=== PATIENT | female | born 1940 | race Caucasian/White ===

== ENCOUNTER 2019-01-15 05:31 | Observation (INO) | payer MEDICARE, OTHER ==
--- NOTE | 2019-01-15 06:26 | ERPHSYRPT ---
- History of Present Illness Source: patient Exam Limitations: no limitations Patient Subjective Stated Complaint: b/p monitor at home said error, pt having dizziness Triage Nursing Assessment: lungs clear, no distress noted. heart tones regular. abd soft with active bowel sounds, no edema noted. Timing/Duration: hour(s) (1.5) Severity: severe Character of Deficits: other (lightheadedness) Baseline/Normal Cognition: alert oriented x 3 Current Cognition: alert oriented x 3 Baseline Gait: walks w/o assistance Associated Symptoms: other (chest discomfort, heat and fluttering, no verigo.) Hx Tetanus, Diphtheria Vaccination/Date Given: Yes Hx Influenza Vaccination/Date Given: Yes (Jul, 2018) Hx Pneumococcal Vaccination/Date Given: Yes Immunizations Up to Date: Yes <RICHY AWSHBURN - Last Filed: 01/15/19 07:09> <GEORGE BASS - Last Filed: 01/15/19 08:27> - History of Present Illness Time Seen by Provider: 01/15/19 06:08 Physician History: Pt started c/o being "lightheaded" at 04:45 AM, when waking up and going to the bathroom. She describes it as "fluttering", and mild chest discomfort, and felt "hot" at the same time. She denies chest pain, SOB, nausea, no recent cough, cold, fever, vomiting, diarrhea or other complaints. She had similar complaints in the past, but not this severe. She walked in the exam room, refused wheelchair. (RICHY WASHBURN) Allergies/Adverse Reactions: Sulfa (Sulfonamide Antibiotics) Adverse Reaction (Verified 06/27/14 11:05) Home Medications: Amlodipine/Atorvastatin [Amlodipine-Atorvast 10-10 mg] 5 mg PO DAILY 06/27/14 [ History] Aspirin 81 mg PO DAILY 06/27/14 [History] Doxycycline Hyclate 100 mg PO DAILY 06/27/14 [History] Metoprolol Succinate 50 mg [Toprol Xl 50 MG] 25 mg PO HS 06/27/14 [History ] Losartan/Hydrochlorothiazide [Losartan-Hctz 100-25 mg Tab] 1 tab PO DAILY [History] Potassium Bicarbonate/Cit AC [Klor-Con-Ef 25 Meq Tab Eff] 12.5 meq PO UD [History] - Review of Systems Constitutional: No Symptoms, Weakness (generalized) Eyes: No Symptoms Ears, Nose, & Throat: No Symptoms Respiratory: No Symptoms Cardiac: Chest Pain, Palpitations Abdominal/Gastrointestinal: No Symptoms Genitourinary Symptoms: No Symptoms Musculoskeletal: No Symptoms Skin: No Symptoms Neurological: Dizziness All Other Systems: Reviewed and Negative <RICHY WASHBURN - Last Filed: 01/15/19 07:09> - Past Medical History Pertinent Past Medical History: Yes Neurological History: No Pertinent History ENT History: Cataracts Cardiac History: Hypertension Respiratory History: No Pertinent History Endocrine Medical History: No Pertinent History Musculoskeletal History: No Pertinent History GI Medical History: No Pertinent History History: No Pertinent History Psycho-Social History: No Pertinent History Female Reproductive Disorders: No Pertinent History Other Medical History: central retinal vein occlusion - Past Surgical History Past Surgical History: Yes Neuro Surgical History: No Pertinent History Cardiac: No Pertinent History Respiratory: No Pertinent History Gastrointestinal: No Pertinent History Genitourinary: No Pertinent History Musculoskeletal: No Pertinent History Female Surgical History: Hysterectomy Other Surgical History: bladder tie up x3, partial thyroid removed. - Social History Smoking Status: Former smoker How long have you smoked: 2 YEARS Exposure to second hand smoke: No Drug Use: none Patient Lives Alone: No - Female History Hx Now: No <RICHY WASHBURN - Last Filed: 01/15/19 07:09> - Wanda Coma Scale Best Eye Response (Wanda): (4) open spontaneously Best Verbal Response (Henderson): (5) oriented Best Motor Response (Wanda): (6) obeys commands Henderson Total: 15 - Physical Exam General Appearance: no apparent distress Eye Exam: bilateral eye: PERRL, EOMI Ears, Nose, Throat Exam: pharynx normal, moist mucous membranes Neck Exam: normal inspection, non-tender, supple, No mass, No carotid bruit, No JVD Respiratory: normal breath sounds, lungs clear, airway intact, No chest tenderness Cardiovascular: regular rate/rhythm, normal heart sounds, normal peripheral pulses, No murmur Gastrointestinal: soft, normal bowel sounds, No tenderness, No distention, No mass, No guarding, No ecchymosis, No pulsatile mass, No rebound, No organomegaly Back Exam: normal inspection, No CVA tenderness, No vertebral tenderness Extremity Exam: normal inspection, No calf tenderness, No karen's sign Peripheral Pulses: carotid (R): 2+, carotid (L): 2+, dorsalis-pedis (R): 2+, dorsalis-pedis (L): 2+ Mental Status: alert, oriented x 3, cooperative frame straightener Exam: normal speech Coordination/Gait: normal gait Motor/Sensory: no motor deficit DTR: knee (R): 2+, knee (L): 2+, ankle (R): 2+, ankle (L): 2+ Skin Exam: normal color, warm, dry, No rash, No petechiae, No diaphoresis SpO2 Interpretation: normal SpO2: 98 O2 Delivery: Room Air <RICHY WASHBURN - Last Filed: 01/15/19 07:09> - Nursing Vital Signs Nursing Vital Signs: Initial Vital Signs Temperature 97.5 F 01/15/19 05:32 Pulse Rate 70 01/15/19 05:32 Respiratory Rate 16 01/15/19 05:32 Blood Pressure 158/87 01/15/19 05:32 O2 Sat by Pulse Oximetry 98 01/15/19 05:32 Pain Scale Pain Intensity 0 - Course Nursing assessment & vital signs reviewed: Yes EKG Interpreted by Me: RATE, Right Arabi Deviation, NORMAL INTERVALS, Right Bundle Branch Block, Non-specific ST Changes <RICHY WASHBURN - Last Filed: 01/15/19 07:09> - Radiology Exams Chest X-ray Interpretation: Interpreted by me (+cxr: no acute disease process noted) <GEORGE BASS - Last Filed: 01/15/19 08:27> Ordered Tests: Active Orders 24 hr Category Date Time Status Executive Vice President And Chief Financial Officer STAT Care 01/15/19 06:17 Active EKG-ER Only STAT Care 01/15/19 06:17 Active IV Insertion STAT Care 01/15/19 06:17 Active Orthostatic Vital Signs STAT Care 01/15/19 06:18 Active CHEST 1 VIEW (PORTABLE) Stat Exams 01/15/19 06:17 Taken HEAD WITHOUT CONTRAST [CT] Stat Exams 01/15/19 06:18 Taken CBC W DIFF Stat Lab 01/15/19 06:17 Completed CK-Creatinine Phosphokinase Stat Lab 01/15/19 06:17 Completed CMP Stat Lab 01/15/19 06:17 Completed D-DIMER QUANTITATION Stat Lab 01/15/19 06:17 Completed NT PRO BNP Stat Lab 01/15/19 06:17 Completed PROTIME WITH INR Stat Lab 01/15/19 06:17 Completed PTT Stat Lab 01/15/19 06:17 Completed TROPONIN Q3H Lab 01/15/19 06:17 Completed TROPONIN Q3H Lab 01/15/19 09:30 Ordered TROPONIN Q3H Lab 01/15/19 12:30 Ordered TROPONIN Q3H Lab 01/15/19 15:30 Ordered TROPONIN Q3H Lab 01/15/19 18:30 Ordered TSH [TSH, 3RD Generation] Stat Lab 01/15/19 06:17 Completed UA W/RFX UR CULTURE Stat Lab 01/15/19 06:40 Completed Medication Summary Generic Name Dose Route Start Last Admin Trade Name Freq PRN Reason Stop Dose Admin Sodium Chloride 1,000 mls @ 100 mls/hr 01/15/19 08:30 Sodium Chloride 0.9% 1000 Ml IV 02/14/19 08:29 .Q10H RY Discontinued Medications Generic Name Dose Route Start Last Admin Trade Name Freq PRN Reason Stop Dose Admin Aspirin 324 mg 01/15/19 08:21 Baby Aspirin 81 Mg Chew PO 01/15/19 08:22 STAT ONE Lab/Rad Data: Laboratory Result Diagrams 01/15/19 06:17 01/15/19 06:17 Laboratory Results 01/15/19 01/15/19 01/15/19 Range/Units 06:40 06:17 06:17 WBC (4.0-10.5) K/mm3 RBC (4.1-5.4) M/mm3 Hgb (12.0-16.0) gm/dl Hct (35-47) % MCV (78-100) fl MCH (26-32) pg MCHC (32-36) g/dl RDW (11.5-14.0) % Plt Count (150-450) K/mm3 MPV (6-9.5) fl Gran % (36.0-66.0) % Eos # (Auto) (0-0.5) Absolute Lymphs (auto) (1.0-4.6) Absolute Monos (auto) (0.0-1.3) Lymphocytes % (24.0-44.0) % Monocytes % (0.0-12.0) % Eosinophils % (0.00-5.0) % Basophils % (0.0-0.4) % Absolute Granulocytes (1.4-6.9) Basophils # (0-0.4) PT (9.95-12.35) SECONDS INR (0.8-3.0) APTT (25.3-37.0) SECONDS D-Dimer (215-500) ng/mL Sodium (137-145) mmol/L Potassium (3.5-5.1) mmol/L Chloride (98-107) mmol/L Carbon Dioxide (22-30) mmol/L Anion Gap (5-15) MEQ/L BUN (7-17) mg/dL Creatinine (0.52-1.04) mg/dL Estimated GFR ML/MIN Glucose (74-106) mg/dL Calcium (8.4-10.2) mg/dL Total Bilirubin (0.2-1.3) mg/dL AST (14-36) U/L ALT (0-35) U/L Alkaline Phosphatase (38-126) U/L Creatine Kinase (30-135) U/L Troponin I < 0.012 (0.000-0.034) ng/mL NT-Pro-B Natriuret Pep (0-1800) pg/mL Serum Total Protein (6.3-8.2) g/dL Albumin (3.5-5.0) g/dL TSH 3rd Generation 4.980 H (0.47-4.68) mIU/L Urine Color STRAW (YELLOW) Urine Appearance CLEAR (CLEAR) Urine pH 7.0 (5-6) Ur Specific [place] 1.012 (1.005-1.025) Urine Protein NEGATIVE (Negative) Urine Ketones NEGATIVE (NEGATIVE) Urine Blood NEGATIVE (0-5) Celestine/ul Urine Nitrite NEGATIVE (NEGATIVE) Urine Bilirubin NEGATIVE (NEGATIVE) Urine Urobilinogen NEGATIVE (0-1) mg/dL Ur Leukocyte Esterase SMALL (NEGATIVE) Urine WBC (Auto) 3-5 (0-5) /HPF Urine RBC (Auto) NONE (0-2) /HPF U Epithel Cells (Auto) RARE (FEW) /HPF Urine Bacteria (Auto) NONE SEEN (NEGATIVE) /HPF Calcium Oxalate Crystal 0-2 (NEGATIVE) /HPF Urine Culture Reflexed NO (NO) Urine Glucose NEGATIVE (NEGATIVE) mg/dL 01/15/19 01/15/19 01/15/19 Range/Units 06:17 06:17 06:17 WBC 6.2 (4.0-10.5) K/mm3 RBC 4.64 (4.1-5.4) M/mm3 Hgb 14.2 (12.0-16.0) gm/dl Hct 42.2 (35-47) % MCV 90.9 (78-100) fl MCH 30.6 (26-32) pg MCHC 33.6 (32-36) g/dl RDW 13.1 (11.5-14.0) % Plt Count 189 (150-450) K/mm3 MPV 11.0 H (6-9.5) fl Gran % 45.1 (36.0-66.0) % Eos # (Auto) 0.13 (0-0.5) Absolute Lymphs (auto) 2.80 (1.0-4.6) Absolute Monos (auto) 0.44 (0.0-1.3) Lymphocytes % 45.2 H (24.0-44.0) % Monocytes % 7.1 (0.0-12.0) % Eosinophils % 2.1 (0.00-5.0) % Basophils % 0.5 (0.0-0.4) % Absolute Granulocytes 2.79 (1.4-6.9) Basophils # 0.03 (0-0.4) PT 11.1 (9.95-12.35) SECONDS INR 0.95 (0.8-3.0) APTT 26.1 (25.3-37.0) SECONDS D-Dimer 637 H* (215-500) ng/mL Sodium 141 (137-145) mmol/L Potassium 3.4 L (3.5-5.1) mmol/L Chloride 109 H (98-107) mmol/L Carbon Dioxide 23 (22-30) mmol/L Anion Gap 13.5 (5-15) MEQ/L BUN 22 H (7-17) mg/dL Creatinine 0.88 (0.52-1.04) mg/dL Estimated GFR > 60.0 ML/MIN Glucose 98 (74-106) mg/dL Calcium 9.4 (8.4-10.2) mg/dL Total Bilirubin 0.40 (0.2-1.3) mg/dL AST 27 (14-36) U/L ALT 22 (0-35) U/L Alkaline Phosphatase 79 (38-126) U/L Creatine Kinase 122 (30-135) U/L Troponin I (0.000-0.034) ng/mL NT-Pro-B Natriuret Pep 116 (0-1800) pg/mL Serum Total Protein 7.1 (6.3-8.2) g/dL Albumin 3.9 (3.5-5.0) g/dL TSH 3rd Generation (0.47-4.68) mIU/L Urine Color (YELLOW) Urine Appearance (CLEAR) Urine pH (5-6) Ur Specific [place] (1.005-1.025) Urine Protein (Negative) Urine Ketones (NEGATIVE) Urine Blood (0-5) Celestine/ul Urine Nitrite (NEGATIVE) Urine Bilirubin (NEGATIVE) Urine Urobilinogen (0-1) mg/dL Ur Leukocyte Esterase (NEGATIVE) Urine WBC (Auto) (0-5) /HPF Urine RBC (Auto) (0-2) /HPF U Epithel Cells (Auto) (FEW) /HPF Urine Bacteria (Auto) (NEGATIVE) /HPF Calcium Oxalate Crystal (NEGATIVE) /HPF Urine Culture Reflexed (NO) Urine Glucose (NEGATIVE) mg/dL <RICHY WASHBURN - Last Filed: 01/15/19 07:09> - Progress Progress: improved <GEORGE BASS - Last Filed: 01/15/19 08:27> - Progress Progress Note: 01/15/19 07:09 We discussed her current condition with Dr Bass, he will follow up on her results and complete her care. (RICHY WASHBURN) 01/15/19 07:59 78 year old white female seen initially by Dr Washburn with complaint of lightheaded and recurrent sensation of fluttering sensation in ant left chest onset around 8:00 this am, senies pain in chest but states fluttering sensation would not resolve. Patient states that she was up this morning around 5:00 she had what felt like a fluttering sensation and mild chest discomfort felt hot felt lightheaded occurred after going to the bathroom. She states that it would not go away she denies shortness of breath she denies severe chest pain no nausea no vomiting. Past medical history includes high blood pressure, cataracts, central retinal vein occlusion. Past surgical history includes bladder tie up 3, partial thyroidectomy. Patient's physical examination well-developed well-nourished white female she is alert, oriented 3. Cranial nerves II through XII are intact. Vitals temperature 97.5 pulse 70 respirations blood pressure 158/87 sats 98%. EKG sinus rhythm, 67 bpm, normal axis, complete right bundle-branch block no acute ST or T wave changes, nonspecific ST changes Chest x-ray no acute disease process noted Labs d-dimer elevated 637 CBC white blood cell 6.2 hemoglobin 14.2 hematocrit 42.2 platelets 181 Troponin less than 0.012 Urinalysis within normal limits Chemistry sodium 141 potassium 3.4 chloride 109 bicarbonate 23 BUN 22 creatinine 0.8 glucose 98% BNP 116 TSH slightly elevated at 4.980 Impression dizziness, palpitations. Plan patient does have mild increased d-dimer however she has no overt chest pain she is not tachycardic nor she short of breath. Will discuss case with Dr. Doyle to discuss possible placing the patient on telemetry continuing monitoring monitor troponins. 01/15/19 08:25 I've discussed the patient's case with Dr. Doyle the patient's family physician. Will plan to place patient on observation will give patient aspirin [address] patient on normal saline 100 mL per hour. And continue to obtain telemetry as well as serial troponins. I have discussed possibility for CTA in view of elevated d-dimer on this patient. It is felt that the patient really doesn't have any signs of any type of pulmonary embolism she is is not short of breath she does not have tachycardia. She does not have pain which would be atypical for pulmonary embolism. Will place patient on telemetry obtain serial troponins provide IV normal saline has noted. Diagnosis 1 dizziness to palpitations 3 chest pain. (GEORGE BASS) <RICHY WASHBURN - Last Filed: 01/15/19 07:09> - Departure Departure Disposition: Observation Critical Care Time: No <GEORGE BASS - Last Filed: 01/15/19 08:27> - Departure Clinical Impression: Dizziness, Palpitations Chest pain Qualifiers: Chest pain type: unspecified Qualified Code(s): R07.9 - Chest pain, unspecified Condition: Fair Referrals: ROBERT DOYLE [Primary Care Provider] -
[2019-01-15 06:35] LABS: BASOPHIL % 0.5 % (0.0-0.4); Basophil (Absolute #) 0.03 (0-0.4); Eosinophil % 2.1 % (0.00-5.0); Eosinophil (Absolute #) 0.13 (0-0.5); Granulocyte Absolute (ANC) 2.79 (1.4-6.9); Granulocytes % 45.1 % (36.0-66.0); Hematocrit 42.2 % (35-47); Hemoglobin 14.2 gm/dl (12.0-16.0); Lymphocytes % 45.2 % (24.0-44.0); Mean Cell Volume 90.9 fl (78-100); Mean Corpuscular Hemoglobin 30.6 pg (26-32); Mean Corpuscular Hgb Concent. 33.6 g/dl (32-36); Monocyte (Absolute #) 0.44 (0.0-1.3); Monocytes % 7.1 % (0.0-12.0); Platelet Count 189 K/mm3 (150-450); Red Blood Count 4.64 M/mm3 (4.1-5.4); Red Cell Distribution Width 13.1 % (11.5-14.0); White Blood Count 6.2 K/mm3 (4.0-10.5)
[2019-01-15 06:52] LABS: INR 0.95 (0.8-3.0); PROTIME 11.1 SECONDS (9.95-12.35)
[2019-01-15 06:54] LABS: PTT 26.1 SECONDS (25.3-37.0)
[2019-01-15 07:12] LABS: Appearance CLEAR (CLEAR); Bilirubin NEGATIVE (NEGATIVE); Blood NEGATIVE Ery/ul (0-5); Calcium Oxalate Crystals 0-2 /HPF (NEGATIVE); Epithelial Cells RARE /HPF (FEW); Glucose NEGATIVE (NEGATIVE); Ketones NEGATIVE (NEGATIVE); Leukocyte Esterase SMALL (NEGATIVE); Nitrite NEGATIVE (NEGATIVE); Protein,Urine Dip NEGATIVE (Negative); Specific Gravity 1.012 (1.005-1.025); Urobilinogen NEGATIVE mg/dL (0-1)
[2019-01-15 07:15] LABS: Bacteria NONE SEEN /HPF (NEGATIVE)
[2019-01-15 07:45] LABS: ALBUMIN 3.9 g/dL (3.5-5.0); ALKALINE PHOSPHATASE 79 U/L (38-126); ANION GAP 13.5 MEQ/L (5-15); BLOOD UREA NITROGEN 22 mg/dL (7-17); CHLORIDE 109 mmol/L (98-107); CK-Creatinine Phosphokinase 122 U/L (30-135); Calcium 9.4 mg/dL (8.4-10.2); Carbon Dioxide 23 mmol/L (22-30); Creatinine 1 0.88 mg/dL (0.52-1.04); Glucose 98 mg/dL (74-106); NT PRO BNP 116 pg/mL (0-1800); Potassium 3.4 mmol/L (3.5-5.1); SGOT/AST 27 U/L (14-36); SGPT/ALT 22 U/L (0-35); SODIUM 141 mmol/L (137-145); Total Protein 7.1 g/dL (6.3-8.2)
[2019-01-15] MEDS ORDERED: BABY ASPIRIN 81 MG CHEW PO ONE (08:21)
[2019-01-15] MEDS ORDERED: Sodium Chloride 0.9% 1000 ML 1,000 ML ONE (08:26)
[2019-01-15] MEDS ORDERED: BABY ASPIRIN 81 MG CHEW ONE (08:26)
[2019-01-15] MEDS ORDERED: Sodium Chloride 0.9% 1000 ML 1,000 ML IV SCH ×2 (08:30→09:15)
--- NOTE | 2019-01-15 09:34 | XRAY ---
Indication: Dizziness. Comparison: None Portable chest demonstrates normal heart and lungs with anatomic variant for azygos lobe. Bony thorax intact with mild degenerative changes.
--- NOTE | 2019-01-15 09:36 | XRAY ---
Indication: Dizziness. Multiple contiguous axial images obtained through the head without contrast. Comparison: None Age-appropriate global atrophy. No acute intracranial hemorrhage, abnormal extra-axial fluid collection, or mass effect. Fourth ventricle is midline without hydrocephalus. Roblero-white matter differentiation preserved. Bony calvarium intact. Visualized paranasal sinuses and mastoid air cells are clear. Impression: Negative CT head without contrast exam. Comment: Preliminary interpretation was made by [facility]. No discrepancy. CT DI 69.11
[2019-01-15] MEDS ORDERED: Cozaar 50 MG PO SCH (11:30)
[2019-01-15] MEDS ORDERED: hydroDIURIL 25 MG PO SCH (11:30)
[2019-01-15] MEDS ORDERED: NORVASC 5 MG PO SCH (11:30)
[2019-01-15] MEDS ORDERED: Zocor 10MG PO SCH (11:30)
[2019-01-15 18:11] VITALS: BP 171/83; PULSE 72; O2SAT 96
[2019-01-15] MEDS ORDERED: Toprol Xl 50 MG PO SCH (22:00)
[2019-01-15] MEDS ORDERED: Toprol-Xl 25MG Tablets PO SCH (22:00)
[2019-01-16] MEDS ORDERED: AMLODIPINE PO SCH (10:00)
[2019-01-16] MEDS ORDERED: ATORVASTATIN PO SCH (10:00)
[2019-01-16] MEDS ORDERED: K-LYTE 25 MEQ PO SCH (10:00)
[2019-01-16] MEDS ORDERED: NON-FORMULARY ITEM (Losartan/Hydrochlorothiazide [Losartan-Hctz 100-25 Mg Tab] 1 TAB) PO SCH (10:00)
[2019-01-16] MEDS ORDERED: ECOTRIN 81 MG PO SCH (10:00)
[2019-01-16] MEDS ORDERED: NON-FORMULARY ITEM (Aspirin [Aspirin] 81 MG) PO SCH (10:00)
--- NOTE | 2019-01-18 09:17 | SSS ---
DISCHARGE DIAGNOSIS: HYPERTENSIVE EPISODE. HOSPITAL COURSE: The patient is an 78 year-old white female who had an episode at home where she felt somewhat diaphoretic and just felt woozy after getting up to the bathroom. She reported she just did not feel good. She tried her blood pressure monitor but it kept her an error signal so she tried to lay back down but just did not feel good. Her brought her to the emergency room where she was monitored and subsequently admitted to the hospital for further evaluation and management. The patient reports she takes metoprolol for controlling her heart rate. She had actually seen her repair welder a day or so ago who did drop metoprolol to half tablet because she was somewhat hypertensive there. She was also hypertensive on routine yearly physical prior to this and she had an episode last week while her nails where she got a little bit woozy. The patient since that time in the hospital has been up and ambulating without difficulty. She is well hydrated with IV fluids. She has had troponins checked which have all been less than 0.012. Her EKG shows right bundle branch block pattern but she has been in sinus rhythm otherwise throughout her stay. The patient is feeling totally back to herself at this point and she is felt to be ready for discharge home again. HOME MEDICATIONS: Amlodipine 5 mg a day, aspirin 81 mg a day. She takes metoprolol 50 mg and she has been decreased to 25 mg extended release daily, losartan hydrochlorothiazide 100 mg one tablet a day and potassium 25 mEq daily. ALLERGIES: SULFA. PHYSICAL EXAMINATION: The patient's vital signs in the emergency room: Temperature 97.5, pulse 70, respiratory rate 16, blood pressure 158/87. O2 saturations 98% on room air. HEENT: Normocephalic, atraumatic. Pupils equal round reactive to light. Extraocular movements intact. Oropharynx is pink and moist. NECK: Supple without lymphadenopathy, thyromegaly or JVD. CHEST: Clear to auscultation with good air movement bilaterally. HEART: Regular rate and rhythm without murmurs, rubs or gallops. ABDOMEN: Soft. No palpable masses. EXTREMITIES: Without cyanosis, clubbing or edema. NEUROLOGIC: The patient is alert and oriented x3. LAB DATA AND TESTS: The patient's laboratory studies show again troponins all less than 0.012. Her metabolic panel showed a glucose of 98, BUN 23, creatinine 0.88, potassium slightly low at 3.4. Liver enzymes were normal. CPK was normal. ProBNP was normal. She had D-dimer slightly elevated at 637. CBC was normal with hemoglobin of 14.2, PLT count 189,000. White count 6,200. Her TSH was slightly elevated at 4.98. UA showed specific gravity 1.012 and essentially normal otherwise. She had CT scan of the head which was negative. Chest x-ray which showed no active disease. The patient again at this point was felt to be ready for discharge home again. She will follow up with Dr. John and/or myself in the next week. She is instructed to take half dose of metoprolol as instructed by her repair welder previously and make sure she stays with good oral fluid intake.
== END 2019-01-15 17:58 | disposition home or self-care (01) ==
LOC: ED 05:31 → MED SURG 09:05
PROVIDERS: ADMIT Family Medicine; ATTEND Family Medicine
DX: I10 Essential (primary) hypertension (principal); I45.10 Unspecified right bundle-branch block; Z79.899 Other long term (current) drug therapy; R07.9 Chest pain, unspecified
CPT/HCPCS: 36000; 36415; 70450; 71045; 80053; 81001; 82550; 83880; 84443; 84484; 85025; 85379; 85610; 85730; 93005; 93041; 93268; 94762; 96360; 99285; G0378; 96374; A9270-GY

== ENCOUNTER 2019-06-04 05:53 | Day surgery (SDC) | payer MEDICARE, OTHER ==
[2019-06-04 06:35] VITALS: O2SAT 98
[2019-06-04] MEDS ORDERED: Lactated Ringers 1,000 ML IV SCH (07:00)
[2019-06-04] MEDS ORDERED: DIPRIVAN 200 MG/20 ML IV ONE (07:35)
[2019-06-04] MEDS ORDERED: Lactated Ringers 1,000 ML IV ONE (08:30)
--- NOTE | 2019-06-04 09:10 | OP ---
SURGERY DATE/TIME: 06/04/2019 0800 PREOPERATIVE DIAGNOSIS: Screening exam. POSTOPERATIVE DIAGNOSIS: Ascending colon polyp and moderate sigmoid diverticulosis. PROCEDURE: Colonoscopy with hot snare polypectomy. SURGEON: Dr. Billings. ANESTHESIA: MAC. Medications given by anesthesia department. HISTORY: The patient is an 78 year-old white female presenting now for endoscopic evaluation. She was appraised of the risks of the procedure including the risk of perforation, phlebitis, untoward reaction to medication, bleeding and missed lesions. The patient verbalized her understanding and desired to have the procedure performed. DESCRIPTION OF PROCEDURE: The patient was given the medications by the anesthesia department. She had continuous pulse oximetry, ECG monitoring, intermittent blood pressure monitoring and tidal CO2 monitoring during the examination. She was placed in the left lateral decubitus position. A digital rectal examination performed and revealed normal anal sphincter tone, external hemorrhoids and no masses otherwise. The flexible Olympus pediatric colonoscope was used to intubate the rectum. A view of the colon was developed sequentially to the cecum where it was seen approximately 1 cm sessile adenomatous appearing polyp in the ascending colon. We first used the hot polypectomy forceps to obtain a sample then followed by the snare for removal of the polyp. The scope was withdrawn towards the rectum and no other mucosal lesions being encountered along the way other than moderate sigmoid diverticulosis. The scope was removed from the patient who tolerated the procedure well and was sent back to OP recovery in good condition. The prep was noted to be fair to good.
[2019-06-04 09:38] VITALS: BP 156/72; PULSE 55
== END 2019-06-04 09:30 | disposition home or self-care (01) ==
LOC: SDC 05:53
PROVIDERS: ATTEND Family Medicine
DX: Z12.11 Encounter for screening for malignant neoplasm of colon (principal); D12.2 Benign neoplasm of ascending colon; K57.30 Diverticulosis of large intestine without perforation or abscess without bleeding
CPT/HCPCS: 99100; J2704

== ENCOUNTER 2021-01-23 03:47 | Emergency (ER) | payer MEDICARE, OTHER ==
--- NOTE | 2021-01-23 04:23 | ERPHSYRPT ---
- History of Present Illness Historian: patient Patient Subjective Stated Complaint: pt c/o abd pain and vomiting Triage Nursing Assessment: pt c/o rt sided lower abd pain radiates to low back, and vomiting. Pt states, "I've had a kidney stone before and it kind of feels like that". Pts pain was improved since vomiting. Pt has bs x4 quad, tender on palpation. Pt denies any diarrhea. Physician History: 80 yo wf w RLQ pain x 7hr. Pain 5/10 but has been up to 06/22. She felt a little better after vomiting and states that it might be a kidney stone. She denies hematemesis/diarrhea/chest pain/dyspnea/dysuria/hematuria/melena/hematochezia. Timing/Duration: other (7hrs) Quality: other (Unable to describe) Abdominal Pain Onset Location: RLQ Pain Radiation: no radiation Severity of Pain-Max: severe Severity of Pain-Current: moderate Modifying Factors: Improves With: nothing, vomiting Associated Symptoms: diaphoresis, nausea, vomiting, weakness, No back, No chest pain, No diarrhea, No fever/chills, No fatigue, No headache, No heartburn, No loss of appetite, No neck pain, No rash, No shortness of breath, No syncope Previous symptoms: same symptoms as today (w kidney stone) Allergies/Adverse Reactions: Sulfa (Sulfonamide Antibiotics) Adverse Reaction (Mild, Verified 01/23/21 04:06) Nausea nausea Home Medications: Aspirin 81 mg PO DAILY 06/27/14 [History] Metoprolol Succinate 50 mg [Toprol Xl 50 MG] 50 mg PO BID 06/27/14 [History] Losartan/Hydrochlorothiazide [Losartan-Hctz 100-25 mg Tab] 1 tab PO DAILY 01/15/19 [History] Potassium Bicarbonate/Cit AC [Klor-Con-Ef 25 Meq Tab Eff] 12.5 meq PO UD 01/15/19 [History] Amlodipine Besylate 5 mg [Norvasc 5 mg] 5 mg PO DAILY 06/04/19 [History] Polyethylene Glycol 3350 [Miralax] 17 gm PO DAILY 01/23/21 [History] Hx Tetanus, Diphtheria Vaccination/Date Given: Yes Hx Influenza Vaccination/Date Given: Yes Hx Pneumococcal Vaccination/Date Given: Yes Immunizations Up to Date: Yes Travel Risk - International Travel Have you traveled outside of the country in past 3 weeks: No - Coronavirus Screening Are you exhibiting any of the following symptoms?: No Close contact with a COVID-19 positive Pt in past 14-21 Days: No - Vaccine Status Have you recieved a Covid-19 vaccination: Yes Pin Attacher: Moderna - Vaccination Dates Date of 2cond Vaccination (if applicable): 11/26/20 - Review of Systems Constitutional: No Symptoms, Weakness Eyes: No Symptoms Ears, Nose, & Throat: No Symptoms Respiratory: No Symptoms Cardiac: No Symptoms Genitourinary Symptoms: No Symptoms Musculoskeletal: No Symptoms Skin: No Symptoms Neurological: No Symptoms Psychological: No Symptoms Endocrine: No Symptoms Hematologic/Lymphatic: No Symptoms Immunological/Allergic: No Symptoms - Past Medical History Pertinent Past Medical History: Yes Neurological History: No Pertinent History ENT History: Cataracts, Other Cardiac History: Arrhythmia, Hypertension Respiratory History: No Pertinent History Endocrine Medical History: Other Musculoskeletal History: No Pertinent History GI Medical History: No Pertinent History History: No Pertinent History Psycho-Social History: No Pertinent History Female Reproductive Disorders: No Pertinent History Other Medical History: central retinal vein occlusion (L EYE) , benign lump to thyroid - Past Surgical History Past Surgical History: Yes Neuro Surgical History: No Pertinent History Cardiac: Internal Defibrillator Respiratory: No Pertinent History Gastrointestinal: No Pertinent History Genitourinary: No Pertinent History Musculoskeletal: No Pertinent History Female Surgical History: Hysterectomy Other Surgical History: bladder tie up x3, partial thyroid removed. - Social History Smoking Status: Never smoker How long have you smoked: 2 YEARS Exposure to second hand smoke: No Drug Use: none Patient Lives Alone: No Significant Family History: no pertinent family hx - Female History Hx Now: No - Nursing Vital Signs Nursing Vital Signs: Initial Vital Signs Temperature 97.6 F 01/23/21 03:51 Pulse Rate 58 L 01/23/21 03:51 Respiratory Rate 18 01/23/21 03:51 Blood Pressure 157/87 01/23/21 03:51 O2 Sat by Pulse Oximetry 99 01/23/21 03:51 Pain Scale Pain Intensity 0 - Physical Exam General Appearance: no apparent distress Eye Exam: PERRL/EOMI, eyes nml inspection Ears, Nose, Throat Exam: normal ENT inspection, TMs normal, pharynx normal Neck Exam: normal inspection, non-tender, supple, full range of motion, No meningismus, No mass, No Brudzinski, No Kernig's Respiratory Exam: normal breath sounds, lungs clear, airway intact, No respiratory distress Cardiovascular Exam: regular rate/rhythm, normal peripheral pulses, No murmur Gastrointestinal/Abdomen Exam: soft, normal bowel sounds, tenderness (Mild RLQ at best/No guarding or rebound) Extremity Exam: normal inspection, normal range of motion Neurologic Exam: alert, oriented x 3, cooperative, dishwasher II-XII nml as tested, normal mood/affect Skin Exam: normal color Lymphatic Exam: No adenopathy SpO2 Interpretation: normal SpO2: 99 O2 Delivery: Room Air - Course Nursing assessment & vital signs reviewed: Yes EKG Interpreted by Me: RATE (Sinus reji/Incomplete RBBB/Prolonged QT/) - CT Exams Abdomen/Pelvis CT Interpretation: Tele-radiologist Report (Nothing acute/Bilateral renal scarring/cysts/renal calculi) Ordered Tests: Active Orders 24 hr Category Date Time Status EKG-ER Only STAT Care 01/23/21 04:22 Completed ABDOMEN AND PELVIS W/0 CONTRAS [CT] Stat Exams 01/23/21 04:16 Taken AMYLASE Stat Lab 01/23/21 04:20 Completed CBC W DIFF Stat Lab 01/23/21 04:20 Completed CMP Stat Lab 01/23/21 04:20 Completed CULTURE,URINE Stat Lab 01/23/21 04:18 Received LIPASE Stat Lab 01/23/21 04:20 Completed TROPONIN Q3H Lab 01/23/21 04:20 Completed TROPONIN Q3H Lab 01/23/21 07:30 Ordered TROPONIN Q3H Lab 01/23/21 10:30 Ordered TROPONIN Q3H Lab 01/23/21 13:30 Ordered TROPONIN Q3H Lab 01/23/21 16:30 Ordered UA W/RFX UR CULTURE Stat Lab 01/23/21 04:18 Completed Lab/Rad Data: Laboratory Result Diagrams 01/23/21 04:20 01/23/21 04:20 Laboratory Results 01/23/21 01/23/21 01/23/21 Range/Units 04:20 04:20 04:20 WBC 10.7 H (4.0-10.5) K/mm3 RBC 4.93 (4.1-5.4) M/mm3 Hgb 15.1 (12.0-16.0) gm/dl Hct 45.8 (35-47) % MCV 92.9 (78-100) fl MCH 30.6 (26-32) pg MCHC 33.0 (32-36) g/dl RDW 12.4 (11.5-14.0) % Plt Count 182 (150-450) K/mm3 MPV 11.0 (7.5-11.0) fl Gran % 83.8 H (36.0-66.0) % Eos # (Auto) 0.07 (0-0.5) Absolute Lymphs (auto) 1.13 (1.0-4.6) Absolute Monos (auto) 0.48 (0.0-1.3) Lymphocytes % 10.6 L (24.0-44.0) % Monocytes % 4.5 (0.0-12.0) % Eosinophils % 0.7 (0.00-5.0) % Basophils % 0.4 (0.0-0.4) % Absolute Granulocytes 8.98 H (1.4-6.9) Basophils # 0.04 (0-0.4) Sodium 138 (137-145) mmol/L Potassium 3.5 (3.5-5.1) mmol/L Chloride 102 (98-107) mmol/L Carbon Dioxide 27 (22-30) mmol/L Anion Gap 12.9 (5-15) MEQ/L BUN 21 H (7-17) mg/dL Creatinine 1.00 (0.52-1.04) mg/dL Estimated GFR 56.4 ML/MIN Glucose 130 H (74-106) mg/dL Calcium 9.7 (8.4-10.2) mg/dL Total Bilirubin 0.30 (0.2-1.3) mg/dL AST 28 (14-36) U/L ALT 18 (0-35) U/L Alkaline Phosphatase 95 (38-126) U/L Troponin I < 0.012 (0.000-0.034) ng/mL Serum Total Protein 7.7 (6.3-8.2) g/dL Albumin 4.5 (3.5-5.0) g/dL Amylase 114 H (30-110) U/L Lipase 132 (23-300) U/L Urine Color (YELLOW) Urine Appearance (CLEAR) Urine pH (5-6) Ur Specific [place] (1.005-1.025) Urine Protein (Negative) Urine Ketones (NEGATIVE) Urine Blood (0-5) Cel[place]/ul Urine Nitrite (NEGATIVE) Urine Bilirubin (NEGATIVE) Urine Urobilinogen (0-1) mg/dL Ur Leukocyte Esterase (NEGATIVE) Urine WBC (Auto) (0-5) /HPF Urine RBC (Auto) (0-2) /HPF U Epithel Cells (Auto) (FEW) /HPF Urine Bacteria (Auto) (NEGATIVE) /HPF Urine Culture Reflexed (NO) Urine Glucose (NEGATIVE) mg/dL Slides for Path Review YES 01/23/21 Range/Units 04:18 WBC (4.0-10.5) K/mm3 RBC (4.1-5.4) M/mm3 Hgb (12.0-16.0) gm/dl Hct (35-47) % MCV (78-100) fl MCH (26-32) pg MCHC (32-36) g/dl RDW (11.5-14.0) % Plt Count (150-450) K/mm3 MPV (7.5-11.0) fl Gran % (36.0-66.0) % Eos # (Auto) (0-0.5) Absolute Lymphs (auto) (1.0-4.6) Absolute Monos (auto) (0.0-1.3) Lymphocytes % (24.0-44.0) % Monocytes % (0.0-12.0) % Eosinophils % (0.00-5.0) % Basophils % (0.0-0.4) % Absolute Granulocytes (1.4-6.9) Basophils # (0-0.4) Sodium (137-145) mmol/L Potassium (3.5-5.1) mmol/L Chloride (98-107) mmol/L Carbon Dioxide (22-30) mmol/L Anion Gap (5-15) MEQ/L BUN (7-17) mg/dL Creatinine (0.52-1.04) mg/dL Estimated GFR ML/MIN Glucose (74-106) mg/dL Calcium (8.4-10.2) mg/dL Total Bilirubin (0.2-1.3) mg/dL AST (14-36) U/L ALT (0-35) U/L Alkaline Phosphatase (38-126) U/L Troponin I (0.000-0.034) ng/mL Serum Total Protein (6.3-8.2) g/dL Albumin (3.5-5.0) g/dL Amylase (30-110) U/L Lipase (23-300) U/L Urine Color STRAW (YELLOW) Urine Appearance CLEAR (CLEAR) Urine pH 6.0 (5-6) Ur Specific [place] 1.012 (1.005-1.025) Urine Protein NEGATIVE (Negative) Urine Ketones NEGATIVE (NEGATIVE) Urine Blood LARGE (0-5) [place]/ul Urine Nitrite NEGATIVE (NEGATIVE) Urine Bilirubin NEGATIVE (NEGATIVE) Urine Urobilinogen NEGATIVE (0-1) mg/dL Ur Leukocyte Esterase SMALL (NEGATIVE) Urine WBC (Auto) 3-5 (0-5) /HPF Urine RBC (Auto) 51-100 (0-2) /HPF U Epithel Cells (Auto) RARE (FEW) /HPF Urine Bacteria (Auto) NONE (NEGATIVE) /HPF Urine Culture Reflexed YES (NO) Urine Glucose NEGATIVE (NEGATIVE) mg/dL Slides for Path Review - Progress Progress: improved Progress Note: 01/23/21 06:08 Pt refused pain meds on multiple occasions Counseled pt/family regarding: lab results, need for follow-up, rad results - Departure Departure Disposition: Home Clinical Impression: Nausea and vomiting, UTI (urinary tract infection) Condition: Stable Critical Care Time: No Referrals: ROBERT DOYLE [Primary Care Provider] - Instructions: Kidney Stones (DC), Urinary Tract Infection, Adult (DC) Additional Instructions: Fluids Strain all urine Start antibiotic lazaro Return to ER for increasing pain or temperature greater than 100.5 Prescriptions: Nitrofurantoin Monohyd/M-Cryst [Macrobid 100 mg Capsule] 100 mg PO BID #14 capsule
[2021-01-23 04:24] LABS: Absolute Neutrophil Ct (ANC) 8.98 (1.4-6.9); BASOPHIL % 0.4 % (0.0-0.4); Basophil (Absolute #) 0.04 (0-0.4); Eosinophil % 0.7 % (0.00-5.0); Eosinophil (Absolute #) 0.07 (0-0.5); Hematocrit 45.8 % (35-47); Hemoglobin 15.1 gm/dl (12.0-16.0); Lymphocyte (Absolute #) 1.13 (1.0-4.6); Lymphocytes % 10.6 % (24.0-44.0); Mean Cell Volume 92.9 fl (78-100); Mean Corpuscular Hemoglobin 30.6 pg (26-32); Monocyte (Absolute #) 0.48 (0.0-1.3); Monocytes % 4.5 % (0.0-12.0); Neutrophil % 83.8 % (36.0-66.0); Platelet Count 182 K/mm3 (150-450); Red Blood Count 4.93 M/mm3 (4.1-5.4); Red Cell Distribution Width 12.4 % (11.5-14.0); White Blood Count 10.7 K/mm3 (4.0-10.5)
[2021-01-23 04:32] LABS: Appearance CLEAR (CLEAR); Bilirubin NEGATIVE (NEGATIVE); Blood LARGE Ery/ul (0-5); Epithelial Cells RARE /HPF (FEW); Glucose NEGATIVE (NEGATIVE); Ketones NEGATIVE (NEGATIVE); Leukocyte Esterase SMALL (NEGATIVE); Nitrite NEGATIVE (NEGATIVE); Protein,Urine Dip NEGATIVE (Negative); RBC 51-100 /HPF (0-2); Specific Gravity 1.012 (1.005-1.025); Urobilinogen NEGATIVE mg/dL (0-1)
[2021-01-23 04:38] LABS: ALBUMIN 4.5 g/dL (3.5-5.0); ANION GAP 12.9 MEQ/L (5-15); BILIRUBIN,TOTAL 0.3 mg/dL (0.2-1.3); Calcium 9.7 mg/dL (8.4-10.2); EST GLOMERULAR FILTRATION RATE 56.4 ML/MIN; Potassium 3.5 mmol/L (3.5-5.1); Total Protein 7.7 g/dL (6.3-8.2)
[2021-01-23 04:56] LABS: Slide Review 1 YES
[2021-01-23 06:06] VITALS: O2SAT 99
[2021-01-23 06:12] VITALS: BP 148/77; PULSE 60
--- NOTE | 2021-01-23 09:02 | XRAY ---
Indication: Right lower quadrant and low back pain. Nausea and vomiting. Multiple contiguous axial images obtained through the abdomen and pelvis without contrast. Comparison: December 30, 2014. Lung bases again demonstrate minimal atelectasis/scarring and right costophrenic angle calcified granuloma. No infiltrate or effusion. Heart is not enlarged with new cardiac pacer lead. Stable small hiatal hernia. Noncontrasted stomach and bowel loops nonobstructed. Appendix remains mildly prominent up to 8mm with intraluminal air. No periappendiceal stranding or free fluid/air. Stable multiple bilateral peripelvic renal cysts. New punctate calculus in each kidney. Stable tiny hepatic/splenic calcified granulomas and hysterectomy. Remaining liver, gallbladder, pancreas, spleen, adrenal glands, kidneys, ureters, and bladder are unremarkable for noncontrast exam. Minimal aortoiliac calcifications without AAA. Osseous structures intact again with mild osteopenia and mild degenerative changes throughout the thoracolumbar spine and both hips. Impression: 1. New nonobstructing punctate calculus in each kidney. 2. Again mildly prominent appendix without CT features for acute appendicitis. 3. Stable bilateral renal parapelvic cysts, small hiatal hernia, chronic bony findings, and old granulomatous disease. Comment: Preliminary interpretation was made by [facility]. No critical discrepancy.
== END 2021-01-23 06:20 | disposition home or self-care (01) ==
LOC: ED 03:47
DX: R11.2 Nausea with vomiting, unspecified (principal); N39.0 Urinary tract infection, site not specified; I10 Essential (primary) hypertension; Z79.899 Other long term (current) drug therapy
CPT/HCPCS: 36000; 36415; 74176; 80053; 81001; 82150; 83690; 84484; 85025; 87086; 93005; 99284

== ENCOUNTER 2021-11-15 05:46 | Day surgery (SDC) | payer MEDICARE ==
--- NOTE | 2021-11-09 14:42 | HP ---
DATE OF SURGERY: 11/15/2021 HISTORY OF PRESENT ILLNESS: The patient is an 81-year-old female present with complaints of a history of diverticulitis. The patient said she has been constipated for the past two to three years. The patient states this summer she developed some left lower quadrant pain. Her family doctor has given her three rounds of antibiotics for this. The pain has improved. On Friday, the patient developed some diarrhea, nausea and vomiting. It lasted all night. She denies any fever or rectal bleeding. She did state that she has a prolapsed bladder. She said sometimes she has to push on her bladder to have a bowel movement. The patient feels there was some yellow fluid stool from the rectum at some point. Incidentally, the patient also was worked up for her gallbladder. The patient's HIDA scan came back 3%. PAST MEDICAL HISTORY: Hypertension, heart disease. PAST SURGICAL HISTORY: Partial hysterectomy, she still has an ovary. Defibrillator for a nerve issue. Two bladder tie-ups. Partial thyroidectomy. ALLERGIES: SULFA. MEDICATIONS: Amlodipine, losartan, metoprolol, aspirin, potassium. FAMILY HISTORY: None reported. SOCIAL HISTORY: None reported. REVIEW OF SYSTEMS: CONSTITUTIONAL: Denies fever or chills. CHEST: Denies shortness of breath. CVS: Denies chest pain. ABDOMEN: Reports resolved left lower quadrant abdominal pain. Reports nausea, vomiting, diarrhea and constipation. Denies rectal bleeding. PHYSICAL EXAMINATION: GENERAL: No acute distress. CHEST: Nonlabored. No shortness of breath. CVS: Regular rate and rhythm. ABDOMEN: Soft, nontender. IMPRESSION: Change in bowel habits, history of diverticulitis, nausea and vomiting. History of abdominal pain. PLAN: EGD and colonoscopy with Dr. Mario Montgomery. The patient will probably need a cholecystectomy at some point. As dictated by Alessia Mahmood NP.
[2021-11-15] MEDS ORDERED: Lactated Ringers 1,000 ML IV SCH (07:00)
[2021-11-15] MEDS ORDERED: DIPRIVAN 200 MG/20 ML IV ONE ×2 (09:31→09:43)
[2021-11-15 10:30] VITALS: O2SAT 96
--- NOTE | 2021-11-15 10:31 | OP ---
SURGERY DATE/TIME: 11/15/2021 0977 PREOPERATIVE DIAGNOSES: 1) Epigastric pain, nausea, vomiting, lower abdominal pain. 2) Patient is not up-to-date on colonoscopy and she has unexplained abdominal pain. POSTOPERATIVE DIAGNOSES: 1) EGD was performed which was normal. 2) C-scope performed with mild sigmoid diverticulosis. PROCEDURES: 1) EGD. 2) Colonoscopy. SURGEON: Mario Montgomery M.D. ANESTHESIA: MAC. COMPLICATIONS: None. CONDITION: Stable. INDICATION: The patient presented with abdominal pain both upper and lower abdominal pain. She does have a history of diverticulosis in the past. She has not had recent upper endoscopic exam and she is not up-to-date on her lower. She does have a HIDA scan at 4%. DESCRIPTION OF PROCEDURE: She was taken to the operating room. Left lateral decubitus position. Pharyngoesophageal junction was normal. Esophagus normal down to gastroesophageal junction. No hiatal hernia. Fundus, body and antrum normal. Pylorus normal. No retained fluid. Duodenal bulb satisfactory. Second portion satisfactory. Scope withdrawn looped upon itself. No hiatal hernia. Scope withdrawn. Anal digital examination was normal. Scope introduced. Rectum satisfactory. Sigmoid mild almost moderate diverticulosis. Scope advanced to the cecum. Base of cecum, ileocecal valve and appendiceal orifice normal. Ascending, hepatic, transverse, splenic, descending was normal. Sigmoid as noted. The patient tolerated the procedure satisfactory. Ten year follow up. She is 81. Findings discussed with in the waiting room. They do want to proceed with cholecystectomy and this will be scheduled. Follow up in two years. Prep score excellent. Withdrawal time 6 minutes.
[2021-11-15 11:19] VITALS: BP 135/68; PULSE 55
== END 2021-11-15 11:00 | disposition home or self-care (01) ==
LOC: SDC 05:46
PROVIDERS: ATTEND Surgery
DX: K57.30 Diverticulosis of large intestine without perforation or abscess without bleeding (principal); R10.30 Lower abdominal pain, unspecified; R10.13 Epigastric pain
CPT/HCPCS: 93005; 99100; J2704

== ENCOUNTER 2021-11-29 06:16 | Day surgery (SDC) | payer MEDICARE ==
--- NOTE | 2021-11-23 13:34 | HP ---
DATE: 11/29/2021 HISTORY OF PRESENT ILLNESS: An 81 y/o female presented with complaints of some recent diarrhea, nausea, and vomiting. Patient has been having some left lower quadrant pain recently related to some diverticulitis. She has been on 3 rounds of antibiotics. She had a repeat CT scan that looked satisfactory, but she was still having some pain with this diarrhea, nausea, and vomiting. Patient had a normal US. We did order a HIDA scan showing that the ejection fraction was 3%. PAST MEDICAL HISTORY: Hypertension, heart disease. CURRENT MEDICATIONS: Amlodipine, Losartan, metoprolol, aspirin, potassium. ALLERGIES: NONE REPORTED. PAST SURGERIES: Partial hysterectomy, defibrillator for a nerve process, two bladder tie-ups, partial thyroidectomy. SOCIAL HISTORY: None reported. FAMILY HISTORY: None reported. REVIEW OF SYSTEMS: CONSTITUTIONAL: Denies fever or chills. CHEST: Denies shortness of breath. CVS: Denies chest pain. ABDOMEN: Reports abdominal pain, nausea, vomiting, diarrhea. Denies constipation or rectal bleeding. PHYSICAL EXAMINATION: GENERAL: No acute distress. CHEST: Nonlabored. No shortness of breath. CVS: Regular rate and rhythm. ABDOMEN: Soft, nontender. IMPRESSION: 1. BILIARY DYSKINESIA. PLAN: Laparoscopic cholecystectomy with Dr. Mario Montgomery. This report was dictated for Dr. Montgomery by Alessia Mahmood NP.
[2021-11-29] MEDS ORDERED: Sensorcaine 0.25% 10 ML ONE (06:24)
[2021-11-29] MEDS ORDERED: Lactated Ringers 1,000 ML IV SCH (07:30)
[2021-11-29 07:35] LABS: Hematocrit 43.4 % (35-47); Hemoglobin 14.4 gm/dl (12.0-16.0); Mean Cell Volume 91.6 fl (78-100); Mean Corpuscular Hemoglobin 30.4 pg (26-32); Mean Corpuscular Hgb Concent. 33.2 g/dl (32-36); Mean Platelet Volume 10.8 fl (7.5-11.0); Platelet Count 172 K/mm3 (150-450); Red Blood Count 4.74 M/mm3 (4.1-5.4); White Blood Count 5.5 K/mm3 (4.0-10.5)
[2021-11-29] MEDS ORDERED: MEFOXIN 2 GM PREMIX** 2 GM/50 ML ML IV SCH (08:00)
[2021-11-29 08:19] LABS: ALBUMIN 3.8 g/dL (3.5-5.0); ALKALINE PHOSPHATASE 82 U/L (38-126); ANION GAP 12.3 MEQ/L (5-15); BLOOD UREA NITROGEN 17 mg/dL (7-17); CHLORIDE 108 mmol/L (98-107); Calcium 9.5 mg/dL (8.4-10.2); Carbon Dioxide 25 mmol/L (22-30); Creatinine 1 0.85 mg/dL (0.52-1.04); EST GLOMERULAR FILTRATION RATE > 60.0 ML/MIN; Glucose 92 mg/dL (74-106); Potassium 3.7 mmol/L (3.5-5.1); SGOT/AST 30 U/L (14-36); SGPT/ALT 22 U/L (0-35); SODIUM 141 mmol/L (137-145); Total Protein 6.6 g/dL (6.3-8.2)
[2021-11-29] MEDS ORDERED: Decadron 4 MG INJ ONE (08:26)
[2021-11-29] MEDS ORDERED: Zemuron 100 MG/10 ML ONE (08:26)
[2021-11-29] MEDS ORDERED: SUBLIMAZE 100 MCG/2 ML ONE ×2 (08:26→10:32)
[2021-11-29] MEDS ORDERED: Xylocaine-Mpf 2% 5 Ml Vial ONE (08:26)
[2021-11-29] MEDS ORDERED: Zofran 4 MG/2 ML VIAL ONE (08:26)
[2021-11-29] MEDS ORDERED: DIPRIVAN 200 MG/20 ML IV ONE (08:26)
[2021-11-29] MEDS ORDERED: BRIDION 200MG/2ML IV ONE (10:08)
[2021-11-29] MEDS ORDERED: Hydromorphone 1 mg/ml Injection ONE (10:40)
--- NOTE | 2021-11-29 10:43 | OP ---
SURGERY DATE/TIME: 11/29/2021 0930 PREOPERATIVE DIAGNOSIS: Gallbladder dyskinesia. POSTOPERATIVE DIAGNOSIS: Gallbladder dyskinesia. PROCEDURE: Laparoscopic cholecystectomy. SURGEON: Dr. Mario Montgomery. BRAKER PASSENGER TRAIN: Alessia Mahmood NP. ANESTHESIA: General endotracheal tube. COMPLICATIONS: None. CONDITION: Stable. INDICATIONS: A patient with upper abdominal pain, ultrasound negative. HIDA scan positive. Seen and examined. Procedure discussed and wished to proceed. DESCRIPTION OF PROCEDURE AND FINDINGS: Taken to surgery. General anesthetic, routine prep and drape. Veress needle inserted. Opening pressure of 1, insufflating pressure 14. Four - 5's. Good visualization. Cystic duct defined. Cystic artery defined. A 1.5 inch window was present here. Both structures triply clipped and transected. Clips noted across and well approximated. Gallbladder rolled out of gallbladder fossa. The gallbladder delivered totally intact through the epigastric port. It was widened to about a size 7. Field was totally dry. Closure of the epigastric port with 0 Vicryl. CO2 exsufflated. Skin closed with 4-0 Vicryl and Steri-Strips. The patient tolerated the procedure satisfactorily.
[2021-11-29] MEDS ORDERED: Lactated Ringers 1,000 ML IV ONE (10:47)
[2021-11-29 11:12] VITALS: O2SAT 96
[2021-11-29 12:00] VITALS: PULSE 58
[2021-11-29 12:32] VITALS: BP 117/57
== END 2021-11-29 12:20 | disposition home or self-care (01) ==
LOC: SDC 06:16
PROVIDERS: ATTEND Surgery
DX: K82.8 Other specified diseases of gallbladder (principal); I10 Essential (primary) hypertension; Z79.899 Other long term (current) drug therapy
CPT/HCPCS: 36415; 80053; 85027; 99100; J0694; J1100; J1170; J2405; J2704; J3010

== ENCOUNTER 2023-01-01 10:36 | Emergency (ER) | payer MEDICARE ==
--- NOTE | 2023-01-01 10:37 | ERPHSYRPT ---
- History of Present Illness Time Seen by Provider: 01/01/23 10:37 Historian: patient, family Exam Limitations: no limitations Physician History: This is an 82-year-old white female patient of Dr. Billings who has had 2 to 3- week history of constipation. She also has some mild nausea. She does see store assistant Dr. John. Patient is on 3 different medications for hyp ertension. Most recently, approximately 1 week ago, the patient was placed on hydralazine. She denies chest pain. She denies shortness of breath. She denies abdominal pain. Patient stated that she was trying to have a bowel movement because she felt as though she needed to have 1 this morning and strained and pushed hard and had only a small bowel movement but had significant on the blood in the toilet water. Patient had a normal colonoscopy in November 2021 per patient report. Patient is not on any blood thinner medication. She has no liver disease. She has no clotting or bleeding disorders. Patient has no history of hemorrhoids neither internal or external. Patient is concerned because of the presence of blood. Timing/Duration: today Activities at Onset: other (Attempting to have a bowel movement and straining) Severity of Pain-Max: none Severity of Pain-Current: none Associated Symptoms: nausea, No chest pain, No fever/chills, No neck pain, No vomiting, No weakness Previous symptoms: no prior history Allergies/Adverse Reactions: Sulfa (Sulfonamide Antibiotics) Adverse Reaction (Mild, Verified 01/23/21 04:06) Nausea nausea Home Medications: Aspirin 81 mg PO DAILY 06/27/14 [History] Metoprolol Succinate 50 mg [Toprol Xl 50 MG] 50 mg PO BID 06/27/14 [Hi story] Losartan/Hydrochlorothiazide [Losartan-Hctz 100-25 mg Tab] 1 tab PO DAILY 01/15/19 [History] Potassium Bicarbonate/Cit AC [Klor-Con-Ef 25 Meq Tab Eff] 12.5 meq PO UD 01/15/19 [History] Polyethylene Glycol 3350 [Miralax] 17 gm PO DAILY PRN PRN 11/29/21 [History] Vitamin B Complex 1 each PO DAILY 11/29/21 [History] Hydralazine HCl 10 mg PO DAILY 01/01/23 [History] Lubiprostone [Amitiza] 24 mcg PO DAILY 01/01/23 [History] Ondansetron ODT 4 MG [Zofran Odt 4 mg] 1 ea UD 01/01/23 [History] Polyethylene Glycol 3350 17 gm [Miralax Powder 17GM PACKET] 17 gm PO DAILY 01/01/23 [History] Hx Tetanus, Diphtheria Vaccination/Date Given: Yes Hx Influenza Vaccination/Date Given: Yes Hx Pneumococcal Vaccination/Date Given: Yes Travel Risk - International Travel Have you traveled outside of the country in past 3 weeks: No - Coronavirus Screening Are you exhibiting any of the following symptoms?: No Close contact with a COVID-19 positive Pt in past 14-21 Days: No - Vaccine Status Have you recieved a Covid-19 vaccination: Yes Box Bender: Moderna - Vaccination Dates Date of 2cond Vaccination (if applicable): 11/26/20 - Review of Systems Constitutional: No Symptoms Eyes: No Symptoms Ears, Nose, & Throat: No Symptoms Respiratory: No Symptoms Cardiac: No Symptoms Abdominal/Gastrointestinal: Nausea, Constipation, Hematochezia, No Vomiting, No Diarrhea Genitourinary Symptoms: No Symptoms Musculoskeletal: No Symptoms Skin: No Symptoms Neurological: No Symptoms Psychological: No Symptoms Endocrine: No Symptoms Hematologic/Lymphatic: No Symptoms Immunological/Allergic: No Symptoms All Other Systems: Reviewed and Negative - Past Medical History Pertinent Past Medical History: Yes Neurological History: No Pertinent History ENT History: Cataracts, Other Cardiac History: Arrhythmia, Hypertension Respiratory History: No Pertinent History Endocrine Medical History: Other Musculoskeletal History: No Pertinent History GI Medical History: No Pertinent History History: No Pertinent History Psycho-Social History: No Pertinent History Female Reproductive Disorders: No Pertinent History Other Medical History: central retinal vein occlusion (L EYE) , benign lump to thyroid. defibrilator - Past Surgical History Past Surgical History: Yes Neuro Surgical History: No Pertinent History Cardiac: Internal Defibrillator Respiratory: No Pertinent History Gastrointestinal: No Pertinent History Genitourinary: No Pertinent History Musculoskeletal: No Pertinent History Female Surgical History: Hysterectomy Other Surgical History: bladder tie up x3, partial thyroid removed. - Social History Smoking Status: Never smoker How long have you smoked: 2 YEARS Exposure to second hand smoke: No Drug Use: none Patient Lives Alone: No Significant Family History: no pertinent family hx - Nursing Vital Signs Nursing Vital Signs: Initial Vital Signs Temperature 95.9 F 01/01/23 10:55 Pulse Rate 74 01/01/23 10:55 Respiratory Rate 18 01/01/23 10:55 Blood Pressure 150/71 01/01/23 10:55 O2 Sat by Pulse Oximetry 100 01/01/23 10:55 Pain Scale Pain Intensity 5 - Physical Exam General Appearance: no apparent distress, alert, anxiety Eye Exam: PERRL/EOMI, eyes nml inspection Ears, Nose, Throat Exam: normal ENT inspection, moist mucous membranes Neck Exam: normal inspection, non-tender, supple, full range of motion Respiratory Exam: normal breath sounds, lungs clear, airway intact, No chest tenderness, No respiratory distress Cardiovascular Exam: regular rate/rhythm, normal heart sounds, normal peripheral pulses Gastrointestinal/Abdomen Exam: soft, normal bowel sounds, No tenderness Pelvic Exam: not done Rectal Exam: not done Back Exam: normal inspection, normal range of motion, No CVA tenderness, No vertebral tenderness Extremity Exam: normal inspection Neurologic Exam: alert, oriented x 3, cooperative, green meat packer II-XII nml as tested, normal mood/affect, nml cerebellar function, nml station & gait, sensation nml Skin Exam: normal color, warm, dry Lymphatic Exam: No adenopathy SpO2 Interpretation: normal O2 Delivery: Room Air - Course Nursing assessment & vital signs reviewed: Yes Ordered Tests: Active Orders 24 hr Category Date Time Status IV Insertion STAT Care 01/01/23 11:06 Active ABDOMEN AND PELVIS W/0 CONTRAS [CT] Stat Exams 01/01/23 11:06 Completed CBC W DIFF Stat Lab 01/01/23 11:44 Completed CMP Stat Lab 01/01/23 11:44 Completed CULTURE,URINE Stat Lab 01/01/23 11:20 Received PROTIME WITH INR Stat Lab 01/01/23 11:44 Completed UA W/RFX UR CULTURE Stat Lab 01/01/23 11:20 Completed Lab/Rad Data: Laboratory Result Diagrams 01/01/23 11:44 01/01/23 11:44 Laboratory Results 01/01/23 01/01/23 01/01/23 Range/Units 11:44 11:44 11:44 WBC 6.5 (4.0-10.5) x10^3/uL RBC 4.26 (4.1-5.4) x10^6/uL Hgb 13.3 (12.0-16.0) g/dL Hct 39.3 (35-47) % MCV 92.3 (78-100) fL MCH 31.2 (26-32) pg MCHC 33.8 (32-36) g/dL RDW 12.8 (11.5-14.0) % Plt Count 171 (150-450) x10^3/uL MPV 10.7 (7.5-11.0) fL Gran % 61.8 (36.0-66.0) % Immature Gran % (Auto) 0.3 (0.00-0.4) % Nucleat RBC Rel Count 0.0 (0.00-0.1) % Eos # (Auto) 0.05 (0-0.5) x10^3/uL Immature Gran # (Auto) 0.02 (0.00-0.03) x10^3u/L Absolute Lymphs (auto) 1.85 (1.0-4.6) x10^3/uL Absolute Monos (auto) 0.50 (0.0-1.3) x10^3/uL Absolute Nucleated RBC 0.00 (0.00-0.01) x10^3u/L Lymphocytes % 28.7 (24.0-44.0) % Monocytes % 7.8 (0.0-12.0) % Eosinophils % 0.8 (0.00-5.0) % Basophils % 0.6 (0.0-0.4) % Absolute Granulocytes 3.99 (1.4-6.9) x10^3/uL Basophils # 0.04 (0-0.4) x10^3/uL PT 10.4 (9.4-12.5) SECONDS INR 0.95 (0.8-3.0) Sodium 141 (137-145) mmol/L Potassium 3.9 (3.5-5.1) mmol/L Chloride 105 (98-107) mmol/L Carbon Dioxide 30 (22-30) mmol/L Anion Gap 10.0 (5-15) MEQ/L BUN 27 H (7-17) mg/dL Creatinine 1.06 H (0.52-1.04) mg/dL Estimated GFR 52.5 ML/MIN Glucose 95 (74-106) mg/dL Calcium 9.5 (8.4-10.2) mg/dL Total Bilirubin 0.50 (0.2-1.3) mg/dL AST 28 (14-36) U/L ALT 21 (0-35) U/L Alkaline Phosphatase 75 (38-126) U/L Serum Total Protein 6.6 (6.3-8.2) g/dL Albumin 3.7 (3.5-5.0) g/dL Urine Color (Yellow) Urine Appearance (Clear) Urine pH (4.6-8.0) Ur Specific [place] (1.005-1.030) Urine Protein (Negative) Urine Glucose (UA) (Negative) mg/dL Urine Ketones (Negative) Urine Blood (Negative) Urine Nitrite (Negative) Urine Bilirubin (Negative) Urine Urobilinogen (0.2) mg/dL Ur Leukocyte Esterase (Negative) Urine Microscopic RBC (0-5) /HPF Urine Microscopic WBC (0-5) /HPF Ur Epithelial Cells (None Seen) /HPF Urine Bacteria (None Seen) /HPF Urine Culture Reflexed (NO) 01/01/23 Range/Units 11:20 WBC (4.0-10.5) x10^3/uL RBC (4.1-5.4) x10^6/uL Hgb (12.0-16.0) g/dL Hct (35-47) % MCV (78-100) fL MCH (26-32) pg MCHC (32-36) g/dL RDW (11.5-14.0) % Plt Count (150-450) x10^3/uL MPV (7.5-11.0) fL Gran % (36.0-66.0) % Immature Gran % (Auto) (0.00-0.4) % Nucleat RBC Rel Count (0.00-0.1) % Eos # (Auto) (0-0.5) x10^3/uL Immature Gran # (Auto) (0.00-0.03) x10^3u/L Absolute Lymphs (auto) (1.0-4.6) x10^3/uL Absolute Monos (auto) (0.0-1.3) x10^3/uL Absolute Nucleated RBC (0.00-0.01) x10^3u/L Lymphocytes % (24.0-44.0) % Monocytes % (0.0-12.0) % Eosinophils % (0.00-5.0) % Basophils % (0.0-0.4) % Absolute Granulocytes (1.4-6.9) x10^3/uL Basophils # (0-0.4) x10^3/uL PT (9.4-12.5) SECONDS INR (0.8-3.0) Sodium (137-145) mmol/L Potassium (3.5-5.1) mmol/L Chloride (98-107) mmol/L Carbon Dioxide (22-30) mmol/L Anion Gap (5-15) MEQ/L BUN (7-17) mg/dL Creatinine (0.52-1.04) mg/dL Estimated GFR ML/MIN Glucose (74-106) mg/dL Calcium (8.4-10.2) mg/dL Total Bilirubin (0.2-1.3) mg/dL AST (14-36) U/L ALT (0-35) U/L Alkaline Phosphatase (38-126) U/L Serum Total Protein (6.3-8.2) g/dL Albumin (3.5-5.0) g/dL Urine Color Dark Yellow A (Yellow) Urine Appearance Clear (Clear) Urine pH 5.5 (4.6-8.0) Ur Specific [place] 1.025 (1.005-1.030) Urine Protein Trace A (Negative) Urine Glucose (UA) Negative (Negative) mg/dL Urine Ketones Trace A (Negative) Urine Blood Negative (Negative) Urine Nitrite Negative (Negative) Urine Bilirubin Negative (Negative) Urine Urobilinogen 0.2 (0.2) mg/dL Ur Leukocyte Esterase Trace A (Negative) Urine Microscopic RBC NONE SEEN (0-5) /HPF Urine Microscopic WBC 0-2 (0-5) /HPF Ur Epithelial Cells None Seen (None Seen) /HPF Urine Bacteria None Seen (None Seen) /HPF Urine Culture Reflexed YES (NO) - Progress Progress: improved, re-examined Progress Note: 01/01/23 12:00 CAT scan of the abdomen pelvis without contrast shows rectal prolapse that appears to be worsening when compared to prior CT scan of the abdomen pelvis. In addition there is a new small left abdominal wall fatty ventral hernia with minimal stranding which is presumed to be inflammatory. There is a prominent appendix without periappendiceal inflammation or stranding. The remainder of the findings are chronic in nature. 01/01/23 12:34 This patient's medical issue is 1 of moderate complexity. The level of complexity and the work-up ordered was based on the patient's past medical hi story, history of present illness, physical findings on examination, review of the patient's medication list, and review of the patient's drug allergies. The work-up included placement of intravenous line with a urinalysis, CBC, CMP, PT/INR, CAT scan of the abdomen and pelvis. The results were reviewed by me. I discussed these results with the patient and the patient's spouse. The patient has a worsening rectal prolapse. This could account for the difficulty in having a bowel movement and possibly some blood with straining to have a bowel movement. Patient has no history of internal or external hemorrhoids and she had a relatively recent negative colonoscopy. My plan, which was discussed with the patient and her spouse, is to have the patient follow-up with her primary care provider and real estate professor as well as a general/colorectal surgeon to evaluate the patient's rectal prolapse. Counseled pt/family regarding: lab results, diagnosis, need for follow-up, rad results Medical Desision Making - Independent Historian Additional History obtained from: Spouse - Discussion of managment Reviewed:: Test results Agreed on:: Treatment plan, need for follow-up - Diagnostic Testing Radiological Interpretation: Reviewed by me - Departure Departure Disposition: Home Clinical Impression: Rectal prolapse, Rectal bleed Condition: Stable Critical Care Time: No Referrals: ROBERT BILLINGS [Primary Care Provider] - Follow up/PCP as directed Additional Instructions: Make sure you do the following as bowel hygiene: Drink plenty of fluids. Increase your activity, increase your fiber in the diet. May add MiraLAX 2 to 3 days a week as instructed on the [id number] container as well as use of [id number] stool softeners. Follow-up with your primary care provider as well as a general/colorectal surgeon to evaluate the rectal prolapse. Continue your other medication as prescribed.
[2023-01-01 11:40] LABS: Appearance Clear (Clear); Bilirubin Negative (Negative); Blood Negative (Negative); Glucose, Urine Negative (Negative); Ketones Trace (Negative); Leukocyte Esterase Trace (Negative); Nitrite Negative (Negative); Ph 5.5 (4.6-8.0); Protein,Urine Dip Trace (Negative); Specific Gravity 1.025 (1.005-1.030); Urobilinogen 0.2 mg/dL (0.2)
[2023-01-01 11:46] LABS: Absolute Neutrophil Ct (ANC) 3.99 x10^3/uL (1.4-6.9); BASOPHIL % 0.6 % (0.0-0.4); Basophil (Absolute #) 0.04 x10^3/uL (0-0.4); Eosinophil % 0.8 % (0.00-5.0); Eosinophil (Absolute #) 0.05 x10^3/uL (0-0.5); Hematocrit 39.3 % (35-47); Hemoglobin 13.3 g/dL (12.0-16.0); IMMATURE GRAN # 0.02 x10^3u/L (0.00-0.03); IMMATURE GRAN % 0.3 % (0.00-0.4); Lymphocyte (Absolute #) 1.85 x10^3/uL (1.0-4.6); Lymphocytes % 28.7 % (24.0-44.0); Mean Cell Volume 92.3 fL (78-100); Mean Corpuscular Hemoglobin 31.2 pg (26-32); Mean Corpuscular Hgb Concent. 33.8 g/dL (32-36); Mean Platelet Volume 10.7 fL (7.5-11.0); Monocytes % 7.8 % (0.0-12.0); Neutrophil % 61.8 % (36.0-66.0); Platelet Count 171 x10^3/uL (150-450); Red Blood Count 4.26 x10^6/uL (4.1-5.4); Red Cell Distribution Width 12.8 % (11.5-14.0); White Blood Count 6.5 x10^3/uL (4.0-10.5)
[2023-01-01 11:51] LABS: WBC 0-2 /HPF (0-5)
[2023-01-01 11:52] LABS: ADD URINE CULTURE? YES (NO); Bacteria None Seen /HPF (None Seen); Epithelial Cells None Seen /HPF (None Seen); RBC NONE SEEN /HPF (0-5)
--- NOTE | 2023-01-01 11:52 | XRAY ---
Indication: Constipation and rectal bleeding. Multiple contiguous axial images obtained through the abdomen and pelvis without contrast. Comparison: November 01, 2021 Lung bases demonstrate stable right costophrenic angle calcific granuloma. No infiltrate or effusion. Heart not enlarged again with pacer lead. Stable small hiatal hernia. Noncontrasted stomach and bowel loops nonobstructed. Appendix remains prominent again up to 1 cm in diameter without periappendiceal stranding. Lack of IV contrast precludes further characterization. Stable scattered descending/sigmoid diverticulosis without diverticulitis. Worsening rectal prolapse. Interval cholecystectomy. No free fluid/air. Left lower abdominal wall and demonstrates new 2.1 cm wide ventral hernia defect with herniated omental fat. Herniated omental fat demonstrates minimal stranding presumed inflammatory. Both kidneys again demonstrates grossly stable multiple peripelvic cysts and nonobstructing punctate calculus. Again incidental tiny hepatic/splenic calcified granulomas and hysterectomy. Remaining liver, pancreas, spleen, adrenal glands, kidneys, ureters, and bladder are unremarkable for noncontrast exam. Again mild scattered aortoiliac calcifications without AAA. Osseous structures intact again with osteopenia, mild degenerative changes throughout spine, mild levoscoliosis, and mild degenerative changes both hips. Impression: 1. Worsening rectal prolapse. 2. New small left abdominal wall fatty ventral hernia with minimal stranding presumed inflammatory. 3. Again prominent appendix. Again mild/early appendicitis not completely excluded in the right clinical setting. 4. Chronic findings including hiatal hernia, colonic diverticulosis, bilateral renal pelvic cysts, nonobstructive bilateral renal punctate calculus, chronic bony findings, and old granulomatous disease.
[2023-01-01 12:01] LABS: INR 0.95 (0.8-3.0); PROTIME 10.4 SECONDS (9.4-12.5)
[2023-01-01 12:02] LABS: ALBUMIN 3.7 g/dL (3.5-5.0); BILIRUBIN,TOTAL 0.5 mg/dL (0.2-1.3); Calcium 9.5 mg/dL (8.4-10.2); Creatinine 1 1.06 mg/dL (0.52-1.04); EST GLOMERULAR FILTRATION RATE 52.5 ML/MIN; Potassium 3.9 mmol/L (3.5-5.1); Total Protein 6.6 g/dL (6.3-8.2)
[2023-01-01 12:42] VITALS: BP 148/74; PULSE 68; O2SAT 96
== END 2023-01-01 12:49 | disposition home or self-care (01) ==
LOC: ED 10:36
DX: K62.3 Rectal prolapse (principal); K62.5 Hemorrhage of anus and rectum; K59.00 Constipation, unspecified; R11.0 Nausea; I10 Essential (primary) hypertension; Z79.899 Other long term (current) drug therapy
CPT/HCPCS: 36000; 36415; 74176; 80053; 81001; 85025; 85610; 87086; 99283

== ENCOUNTER 2023-03-10 13:20 | Observation (INO) | payer MEDICARE ==
[2023-03-10] MEDS ORDERED: Sodium Chloride 0.9% 1000 ML 1,000 ML IV STA (13:45)
[2023-03-10] MEDS ORDERED: Sodium Chloride 0.9% 1000 ML 1,000 ML ONE (13:49)
[2023-03-10 13:58] LABS: Absolute Neutrophil Ct (ANC) 3.39 x10^3/uL (1.4-6.9); BASOPHIL % 0.6 % (0.0-0.4); Basophil (Absolute #) 0.04 x10^3/uL (0-0.4); Eosinophil % 1.6 % (0.00-5.0); Eosinophil (Absolute #) 0.11 x10^3/uL (0-0.5); Hematocrit 41.5 % (35-47); Hemoglobin 13.9 g/dL (12.0-16.0); IMMATURE GRAN # 0.02 x10^3u/L (0.00-0.03); IMMATURE GRAN % 0.3 % (0.00-0.4); Lymphocyte (Absolute #) 2.87 x10^3/uL (1.0-4.6); Lymphocytes % 41.1 % (24.0-44.0); Mean Cell Volume 91.6 fL (78-100); Mean Corpuscular Hemoglobin 30.7 pg (26-32); Mean Corpuscular Hgb Concent. 33.5 g/dL (32-36); Mean Platelet Volume 11.1 fL (7.5-11.0); Monocyte (Absolute #) 0.55 x10^3/uL (0.0-1.3); Monocytes % 7.9 % (0.0-12.0); Neutrophil % 48.5 % (36.0-66.0); Platelet Count 189 x10^3/uL (150-450); Red Blood Count 4.53 x10^6/uL (4.1-5.4); Red Cell Distribution Width 11.9 % (11.5-14.0)
[2023-03-10 14:13] LABS: ANION GAP 12.8 MEQ/L (5-15); BILIRUBIN,TOTAL 0.6 mg/dL (0.2-1.3); Calcium 9.4 mg/dL (8.4-10.2); Creatinine 1 1.09 mg/dL (0.52-1.04); EST GLOMERULAR FILTRATION RATE 50.8 ML/MIN; MAGNESIUM 2.2 mg/dL (1.6-2.3); Potassium 3.9 mmol/L (3.5-5.1); Total Protein 7.1 g/dL (6.3-8.2)
--- NOTE | 2023-03-10 14:53 | XRAY ---
CLINICAL HISTORY:Numbness arm at right side/lightheaded. COMPARISON:Prior CT head dated 01/15/2019. TECHNIQUES:Contiguous axial images are obtained from the skull base to the vertex without intravenous contrast. Reformatted images were performed. FINDINGS: No acute intracranial abnormality is present. No evidence of acute cortical infarction, hemorrhage, mass or mass effect. Normal ventricular system. No abnormal extra-axial fluid collections are present. The posterior fossa is unremarkable. The skull base and calvarium are intact. The included portions of the paranasal sinuses shows mucosal thickening in the left maxillary sinus and right-sided nasal septal deviation. IMPRESSION: No acute intracranial abnormality is present. Early changes of a stroke may not be detected on a CT scan. If strong clinical suspicion of stroke then suggest MRI with diffusion-weighted imaging. Plain CT head dated 01/15/2019 was also unremarkable. Electronically Signed by: Mingo Landeros MD. (03/10/2023 13:50:14 FITTER / WELDER)
[2023-03-10 15:13] LABS: Appearance Clear (Clear); Bacteria None Seen /HPF (None Seen); Bilirubin Negative (Negative); Blood Negative (Negative); Epithelial Cells None Seen /HPF (None Seen); Glucose, Urine Negative (Negative); Hyaline Casts NONE SEEN /LPF (0-2); Ketones Negative (Negative); Leukocyte Esterase Trace (Negative); Nitrite Negative (Negative); Ph 7.5 (4.6-8.0); Protein,Urine Dip Negative (Negative); RBC 0-2 /HPF (0-5); Specific Gravity 1.015 (1.005-1.030); Urobilinogen 0.2 mg/dL (0.2); WBC 0-2 /HPF (0-5)
[2023-03-10 15:24] LABS: ADD URINE CULTURE? NO (NO)
[2023-03-10] MEDS ORDERED: BABY ASPIRIN 81 MG CHEW PO ONE (18:17)
[2023-03-10] MEDS ORDERED: PLAVIX Tablet PO ONE (18:18)
--- NOTE | 2023-03-10 18:25 | ERPHSYRPT ---
- History of Present Illness Time Seen by Provider: 03/10/23 13:30 Source: patient, family Exam Limitations: no limitations Patient Subjective Stated Complaint: patient walking in [facility], diaphoretic, numbness right arm, dizziness. pain 3/10 llq due to diverticulitis. numbess and diaphoresis is completely gone now but still a little dizzy. Triage Nursing Assessment: patient ambulated back to room with no difficulty. No shortness of breath noted. no weakness, no facial droop noted. Physician History: 82 years old female with history of hypertension, sick sinus syndrome status post defibrillator placement presented in the ER with chief complaint of dizziness/lightheadedness and transient numbness of right forearm almost an hour prior to arrival. Patient reports she was walking in [place], started to feel dizzy lightheaded, mild difficulty breathing, was on the way to come back home and started to feel numbness right forearm with no weakness. It lasted for almost 10 minutes and improved on its own prior to arrival. She denies having any difficulty speech, focal weakness or visual symptoms. Patient is very anxious, denies any chest pain palpitations or shortness of breath at present but does feel weak fatigued tired and worn out with mild dizziness/lightheadedness. Timing/Duration: hour(s) (1), sudden, improved Severity: mild Character of Deficits: altered sensation Baseline/Normal Cognition: alert oriented x 3 Current Cognition: alert oriented x 3 Baseline Gait: walks w/o assistance Associated Symptoms: No confusion, No fatigue, No fever, No chills, No loss of consciousness, No nausea, No vomiting, No weakness, No insomnia, No muscle spasms, No numbness/tingling in legs/feet, No ringing in ears, No seizures, No slurred speech, No trouble walking, No vision changes, No chest pain, No headache Allergies/Adverse Reactions: Sulfa (Sulfonamide Antibiotics) Adverse Reaction (Mild, Verified 01/23/21 04:06) Nausea nausea Home Medications: Aspirin 81 mg PO DAILY 06/27/14 [History] Metoprolol Succinate 50 mg [Toprol Xl 50 MG] 50 mg PO BID 06/27/14 [His tory] Losartan/Hydrochlorothiazide [Losartan-Hctz 100-25 mg Tab] 1 tab PO DAILY 01/15/19 [History] Polyethylene Glycol 3350 [Miralax] 17 gm PO DAILY PRN PRN 11/29/21 [History] NIFEdipine [Nifedipine ER] 30 mg PO DAILY 03/10/23 [History] Hx Tetanus, Diphtheria Vaccination/Date Given: Yes Hx Influenza Vaccination/Date Given: Yes Hx Pneumococcal Vaccination/Date Given: Yes Travel Risk - International Travel Have you traveled outside of the country in past 3 weeks: No - Coronavirus Screening Are you exhibiting any of the following symptoms?: No Close contact with a COVID-19 positive Pt in past 14-21 Days: No - Vaccine Status Have you recieved a Covid-19 vaccination: Yes [employer]: Moderna - Vaccination Dates Date of 2cond Vaccination (if applicable): 11/25/20 - Review of Systems Constitutional: Fatigue Eyes: No Symptoms Ears, Nose, & Throat: No Symptoms Respiratory: Dyspnea Cardiac: No Symptoms Abdominal/Gastrointestinal: No Symptoms Genitourinary Symptoms: No Symptoms Musculoskeletal: Arthralgias Skin: No Symptoms Neurological: Dizziness Endocrine: No Symptoms Hematologic/Lymphatic: No Symptoms Immunological/Allergic: No Symptoms - Past Medical History Pertinent Past Medical History: Yes Neurological History: No Pertinent History ENT History: No Pertinent History Cardiac History: Arrhythmia, Hypertension Respiratory History: No Pertinent History Endocrine Medical History: Other Musculoskeletal History: No Pertinent History GI Medical History: Diverticulitis History: No Pertinent History Psycho-Social History: No Pertinent History Female Reproductive Disorders: No Pertinent History Other Medical History: central retinal vein occlusion (L EYE) , benign lump to thyroid. defibrilator - Past Surgical History Past Surgical History: Yes Neuro Surgical History: No Pertinent History Cardiac: Internal Defibrillator Respiratory: No Pertinent History Gastrointestinal: No Pertinent History Genitourinary: No Pertinent History Musculoskeletal: No Pertinent History Female Surgical History: Hysterectomy Other Surgical History: bladder tie up x3, partial thyroid removed. - Social History Smoking Status: Never smoker How long have you smoked: 2 YEARS Exposure to second hand smoke: No Drug Use: none Patient Lives Alone: No Significant Family History: no pertinent family hx - Nursing Vital Signs Nursing Vital Signs: Initial Vital Signs Pulse Rate 61 03/10/23 13:15 Respiratory Rate 24 03/10/23 13:15 Blood Pressure 121/58 03/10/23 13:15 O2 Sat by Pulse Oximetry 97 03/10/23 13:15 Pain Scale Pain Intensity 0 - Wanda Coma Scale Best Eye Response ([place]): (4) open spontaneously Best Verbal Response ([place]): (5) oriented Best Motor Response ([place]): (6) obeys commands Wanda Total: 15 - Physical Exam General Appearance: no apparent distress, alert, anxiety Eye Exam: bilateral eye: normal inspection, PERRL, EOMI Ears, Nose, Throat Exam: normal ENT inspection, TMs normal, pharynx normal, moist mucous membranes Neck Exam: normal inspection, non-tender, supple, full range of motion Respiratory: normal breath sounds, lungs clear Cardiovascular: regular rate/rhythm, normal heart sounds Gastrointestinal: soft, normal bowel sounds, No tenderness Back Exam: normal inspection, normal range of motion Extremity Exam: normal inspection, normal range of motion Mental Status: alert, oriented x 3, cooperative rn ent Exam: normal hearing, normal speech, PERRL Coordination/Gait: normal finger to nose Motor/Sensory: no motor deficit, no sensory deficit, no pronator drift, negative Babinski's sign DTR: bicep (R): 2+, bicep (L): 2+, knee (R): 2+, knee (L): 2+ Skin Exam: normal color SpO2 Interpretation: normal SpO2: 98 O2 Delivery: Room Air - Course EKG Interpreted by Me: RATE, NORMAL AXIS, NORMAL INTERVALS Ordered Tests: Active Orders 24 hr Category Date Time Status EKG-ER Only STAT Care 03/10/23 13:45 Active IV Insertion STAT Care 03/10/23 13:45 Active NPO (ED) STAT Care 03/10/23 13:45 Active Tele-Health Consult ROUTINE Cons 03/10/23 16:15 Active CHEST 1 VIEW (PORTABLE) Stat Exams 03/10/23 14:[address] ANGIOGRAPHY NECK [CT] Stat Exams 03/10/23 18:16 Ordered CTA HEAD W AND/OR WO CONTRAST [CT] Stat Exams 03/10/23 18:16 Ordered HEAD WITHOUT CONTRAST [CT] Stat Exams 03/10/23 14:08 Completed CBC W DIFF Stat Lab 03/10/23 13:20 Completed CK-Creatinine Phosphokinase Stat Lab 03/10/23 13:20 Completed CMP Stat Lab 03/10/23 13:20 Completed D-DIMER QUANTITATIVE Stat Lab 03/10/23 13:20 Completed MAGNESIUM Stat Lab 03/10/23 13:20 Completed TROPONIN Q4H Lab 03/10/23 13:20 Completed TROPONIN Q4H Lab 03/10/23 18:00 Ordered TROPONIN Q4H Lab 03/10/23 22:00 Ordered UA W/RFX UR CULTURE Stat Lab 03/10/23 15:03 Completed Medication Summary Discontinued Medications Generic Name Dose Route Start Last Admin Trade Name Tonyq PRN Reason Stop Dose Admin Aspirin 243 mg 03/10/23 18:17 Aspirin 81 Mg Tab.Chew PO 03/10/23 18:18 STAT ONE Clopidogrel Bisulfate 75 mg 03/10/23 18:18 Clopidogrel Bisulfate 75 Mg Tablet PO 03/10/23 18:19 STAT ONE Sodium Chloride 1,000 mls @ 999 mls/hr 03/10/23 13:45 03/10/23 14:50 Sodium Chloride 0.9% 1000 Ml IV 03/10/23 14:45 Infused .Q1H1M STA Infusion Sodium Chloride Confirm 03/10/23 13:49 Sodium Chloride 0.9% 1000 Ml Administered 03/10/23 13:50 Dose 1,000 mls @ ud .ROUTE .K-MED ONE Lab/Rad Data: Laboratory Result Diagrams 03/10/23 13:20 03/10/23 13:20 Laboratory Results 03/10/23 03/10/23 03/10/23 Range/Units 15:03 13:20 13:20 WBC (4.0-10.5) x10^3/uL RBC (4.1-5.4) x10^6/uL Hgb (12.0-16.0) g/dL Hct (35-47) % MCV (78-100) fL MCH (26-32) pg MCHC (32-36) g/dL RDW (11.5-14.0) % Plt Count (150-450) x10^3/uL MPV (7.5-11.0) fL Gran % (36.0-66.0) % Immature Gran % (Auto) (0.00-0.4) % Nucleat RBC Rel Count (0.00-0.1) % Eos # (Auto) (0-0.5) x10^3/uL Immature Gran # (Auto) (0.00-0.03) x10^3u/L Absolute Lymphs (auto) (1.0-4.6) x10^3/uL Absolute Monos (auto) (0.0-1.3) x10^3/uL Absolute Nucleated RBC (0.00-0.01) x10^3u/L Lymphocytes % (24.0-44.0) % Monocytes % (0.0-12.0) % Eosinophils % (0.00-5.0) % Basophils % (0.0-0.4) % Absolute Granulocytes (1.4-6.9) x10^3/uL Basophils # (0-0.4) x10^3/uL D-Dimer 0.64 H* (0.0-0.50) mg/L Sodium (137-145) mmol/L Potassium (3.5-5.1) mmol/L Chloride (98-107) mmol/L Carbon Dioxide (22-30) mmol/L Anion Gap (5-15) MEQ/L BUN (7-17) mg/dL Creatinine (0.52-1.04) mg/dL Estimated GFR ML/MIN Glucose (74-106) mg/dL Calcium (8.4-10.2) mg/dL Magnesium (1.6-2.3) mg/dL Total Bilirubin (0.2-1.3) mg/dL AST (14-36) U/L ALT (0-35) U/L Alkaline Phosphatase (38-126) U/L Creatine Kinase (30-135) U/L Troponin I < 0.012 (0.000-0.034) ng/mL Serum Total Protein (6.3-8.2) g/dL Albumin (3.5-5.0) g/dL Urine Color Yellow (Yellow) Urine Appearance Clear (Clear) Urine pH 7.5 (4.6-8.0) Ur Specific [place] 1.015 (1.005-1.030) Urine Protein Negative (Negative) Urine Glucose (UA) Negative (Negative) mg/dL Urine Ketones Negative (Negative) Urine Blood Negative (Negative) Urine Nitrite Negative (Negative) Urine Bilirubin Negative (Negative) Urine Urobilinogen 0.2 (0.2) mg/dL Ur Leukocyte Esterase Trace A (Negative) U Hyaline Cast (Auto) NONE SEEN (0-2) /LPF Urine Microscopic RBC 0-2 (0-5) /HPF Urine Microscopic WBC 0-2 (0-5) /HPF Ur Epithelial Cells None Seen (None Seen) /HPF Urine Bacteria None Seen (None Seen) /HPF Urine Culture Reflexed NO (NO) 03/10/23 03/10/23 Range/Units 13:20 13:20 WBC 7.0 (4.0-10.5) x10^3/uL RBC 4.53 (4.1-5.4) x10^6/uL Hgb 13.9 (12.0-16.0) g/dL Hct 41.5 (35-47) % MCV 91.6 (78-100) fL MCH 30.7 (26-32) pg MCHC 33.5 (32-36) g/dL RDW 11.9 (11.5-14.0) % Plt Count 189 (150-450) x10^3/uL MPV 11.1 H (7.5-11.0) fL Gran % 48.5 (36.0-66.0) % Immature Gran % (Auto) 0.3 (0.00-0.4) % Nucleat RBC Rel Count 0.0 (0.00-0.1) % Eos # (Auto) 0.11 (0-0.5) x10^3/uL Immature Gran # (Auto) 0.02 (0.00-0.03) x10^3u/L Absolute Lymphs (auto) 2.87 (1.0-4.6) x10^3/uL Absolute Monos (auto) 0.55 (0.0-1.3) x10^3/uL Absolute Nucleated RBC 0.00 (0.00-0.01) x10^3u/L Lymphocytes % 41.1 (24.0-44.0) % Monocytes % 7.9 (0.0-12.0) % Eosinophils % 1.6 (0.00-5.0) % Basophils % 0.6 (0.0-0.4) % Absolute Granulocytes 3.39 (1.4-6.9) x10^3/uL Basophils # 0.04 (0-0.4) x10^3/uL D-Dimer (0.0-0.50) mg/L Sodium 140 (137-145) mmol/L Potassium 3.9 (3.5-5.1) mmol/L Chloride 106 (98-107) mmol/L Carbon Dioxide 25 (22-30) mmol/L Anion Gap 12.8 (5-15) MEQ/L BUN 28 H (7-17) mg/dL Creatinine 1.09 H (0.52-1.04) mg/dL Estimated GFR 50.8 ML/MIN Glucose 97 (74-106) mg/dL Calcium 9.4 (8.4-10.2) mg/dL Magnesium 2.2 (1.6-2.3) mg/dL Total Bilirubin 0.60 (0.2-1.3) mg/dL AST 29 (14-36) U/L ALT 20 (0-35) U/L Alkaline Phosphatase 86 (38-126) U/L Creatine Kinase 96 (30-135) U/L Troponin I (0.000-0.034) ng/mL Serum Total Protein 7.1 (6.3-8.2) g/dL Albumin 4.0 (3.5-5.0) g/dL Urine Color (Yellow) Urine Appearance (Clear) Urine pH (4.6-8.0) Ur Specific [place] (1.005-1.030) Urine Protein (Negative) Urine Glucose (UA) (Negative) mg/dL Urine Ketones (Negative) Urine Blood (Negative) Urine Nitrite (Negative) Urine Bilirubin (Negative) Urine Urobilinogen (0.2) mg/dL Ur Leukocyte Esterase (Negative) U Hyaline Cast (Auto) (0-2) /LPF Urine Microscopic RBC (0-5) /HPF Urine Microscopic WBC (0-5) /HPF Ur Epithelial Cells (None Seen) /HPF Urine Bacteria (None Seen) /HPF Urine Culture Reflexed (NO) - Progress Progress: improved, re-examined Progress Note: 03/10/23 18:26 82 years old female with history of hypertension, sick sinus syndrome status post defibrillator placement presented in the ER with chief complaint of dizziness/lightheadedness and transient numbness of right forearm almost an hour prior to arrival. Patient reports she was walking in [place], started to feel dizzy lightheaded, mild difficulty breathing, was on the way to come back home and started to feel numbness right forearm with no weakness. It lasted for almost 10 minutes and improved on its own prior to arrival. She denies having any difficulty speech, focal weakness or visual symptoms. Patient is very anxious, denies any chest pain palpitations or shortness of breath at present but does feel weak fatigued tired and worn out. Broad work-up was done, patient has nonfocal neuro exam throughout stay in the ER. Given fluids, EKG did not show any acute arrhythmia/ischemic changes and negative troponins. Fairly unremarkable chemistries, normal white count, chest x-ray negative for any acute cardiopulmonary findings. Patient continued to improve and no more dizzy at all. CT head is negative for acute stroke related findings. I have obtained neurology consult who thinks patient has TIA, recommended obtaining CTA head and neck in the ER for further evaluation of vasculature and MRI without contrast tomorrow. Patient will be started on aspirin and Plavix both. Neurology recommended platelet function test before giving the loading dose of Plavix, I have discussed with Dr. Coffman, this cannot be done here, recommended starting regular dose of Plavix along with aspirin. I have discussed lab work, imaging findings, neurology and hospitalist recommendation with the patient and family who understand and agree with admission here. Discussed with .: Celia Counseled pt/family regarding: lab results, diagnosis, need for follow-up, rad results Medical Desision Making - Independent Historian Additional History obtained from: Spouse - Discussion of managment Care discussed with:: specialist (Neurologist and hospitalist Dr. Coffman) Reviewed:: Test results, Need for additional workup Agreed on:: Treatment plan, place in obs Will see patient: in hospital - Diagnostic Testing Diagnostic test were ordered, analyzed, and reviewed by me: Yes Radiological Interpretation: Interpreted by me, Reviewed by me, Teleradiologist Report - Risk of complications The pt has a high risk of morbidity or mortality based on: Decision regarding hospitilization or escalation of hosp level of care - Departure Departure Disposition: Observation Clinical Impression: Transient ischemic attack (TIA), Dizziness Condition: Stable Critical Care Time: No Referrals: ROBERT DOYLE [Primary Care Provider] - Follow up/PCP as directed
[2023-03-10] MEDS ORDERED: PLAVIX Tablet ONE (18:49)
[2023-03-10] MEDS ORDERED: BABY ASPIRIN 81 MG CHEW ONE (18:49)
--- NOTE | 2023-03-10 18:57 | XRAY ---
Indication: Dizziness. Comparison: January 15, 2019 Portable chest remains clear again with anatomic variant for azygos lobe. Heart not enlarged with new left AICD. Bony thorax intact again with osteopenia and mild degenerative changes. Impression: Continued nonacute chest with chronic features.
--- NOTE | 2023-03-10 19:53 | XRAY ---
CLINICAL HISTORY:Stroke like symptoms; COMPARISON:None; TECHNIQUES:Contiguous, multislice, CT angiography of the head was performed without and with contrast in the axial plane with multiplanar reconstructions including MIP technique. 80 cc Isovue was given as IV contrast. Total DLP-660.01; CTDI-37.37; FINDINGS: Normal course and caliber of distal internal carotid arteries and their branches on both sides with no detectable occlusion or significant luminal stenosis. Within normal opacification of the cerebral arteries forming the [place] with no significant stenosis or arterial occlusion. Normal CTA appearance of vertebro-basilar system with no significant stenosis or extrinsic compression noted. No detectable intracranial aneurysms or arteriovenous malformation. No detectable acute intracranial hemorrhage or established acute territory infarction. Left maxillary sinus retention cyst is seen. IMPRESSION: 1. Grossly unremarkable CT Angiography of the cerebral arteries. 2. No detectable acute intracranial hemorrhage or established acute territory infarction. Electronically Signed by: Mingo Landeros MD. (03/10/2023 18:45:56 [employer])
[2023-03-10] MEDS ORDERED: DUONEB 0.5-3 MG/3 ml Neb IH PRN (19:54)
[2023-03-10] MEDS ORDERED: TYLENOL 325 MG PO PRN (19:54)
[2023-03-10] MEDS ORDERED: Sodium Chloride 0.9% 1000 ML 1,000 ML IV SCH (19:54)
--- NOTE | 2023-03-10 19:55 | XRAY ---
CLINICAL HISTORY:Numbness arm/lightheaded; COMPARISON:None; TECHNIQUES:Contiguous, multislice, CT angiography of the Neck was performed with contrast in the axial plane with multiplanar reconstructions. 80 cc Isovue was given as IV contrast. Total DLP-660.01; CTDI-37.37; FINDINGS: Normal course and caliber of the common carotid, vertebral, external and internal carotid arteries and their branches on both sides with no detectable occlusion or significant luminal stenosis. Normal CTA appearance of vertebrobasilar system with no significant stenosis or extrinsic compression noted. No detectable aneurysms or arteriovenous malformation. Enlarged left thyroid lobe showing multiple hypodense lesions, largest measuring about 13.6 mm. Right thyroid lobe is not visualized, likely surgically removed. Ultrasound correlation is recommended. Visualized paranasal sinuses shows mucosal polyp in left maxillary sinus. Deviated nasal septum towards right side. IMPRESSION: Grossly unremarkable CTA of the major cervical and cerebral arteries. Electronically Signed by: Mingo Landeros MD. (03/10/2023 18:49:35 [employer])
--- NOTE | 2023-03-10 22:24 | PCM.HP ---
History of Present Illness - Chief Complaint Chief Complaint: near sycope/TIA History of Present Illness: This is an 82-year-old female admitted for concern of TIA. She has history of hypertension, sick sinus syndrome status post pacemaker. She reports in December she was placed on Nifedipine because other antihypertensive medication was causing dizziness. She presented to the ED this afternoon for evaluation of sudden onset diaphoresis, right arm numbness and dizziness. She was in [employer] and suddenly felt that she was going to pass out. She left store and while in the car she developed right arm numbness and subsequently went straight to the ED. In the ED numbness and diaphoresis had resolved but she reported persistent dizziness. On arrival heart rate 60, blood pressure 141/71. Labs significant for WBC 7, platelets 189, D-dimer 0.64, creatinine 1.09, troponin negative again with trace leukocyte esterase no bacteria or WBCs. CT angio head and neck was performed unremarkable chest x-ray acute. She was seen by neurology who is suspicious for TIA and recommended aspirin and Plavix initiation. Currently she reports she has returned to normal status of health. She denies any fever, chills, cough, SOB, n/v/d/c, lower extremity edema. - Review of Systems Neurological: Dizziness, Sensory Changes All Other Systems: Reviewed and Negative Medications & Allergies Home Medications: Home Medication List Aspirin 81 mg PO DAILY 06/27/14 [History Confirmed 03/10/23] Metoprolol Succinate 50 mg [Toprol Xl 50 MG] 50 mg PO BID 06/27/14 [History Confirmed 03/10/23] Losartan/Hydrochlorothiazide [Losartan-Hctz 100-25 mg Tab] 1 tab PO DAILY 01/15/19 [History Confirmed 03/10/23] Polyethylene Glycol 3350 [Miralax] 17 gm PO DAILY PRN PRN 11/29/21 [History Confirmed 03/10/23] NIFEdipine [Nifedipine ER] 30 mg PO DAILY 03/10/23 [History Confirmed 03/10/23] Allergies/Adverse Reactions: Allergies Allergy/AdvReac Type Severity Reaction Status Date / Time Sulfa (Sulfonamide AdvReac Mild Nausea Verified 01/23/21 04:06 Antibiotics) - Past Medical History Past Medical History: Yes Neurological History: No Pertinent History ENT History: No Pertinent History Cardiac History: Arrhythmia, Hypertension Respiratory History: No Pertinent History Endocrine Medical History: Other Musculoskelatal History: No Pertinent History GI Medical History: Diverticulitis History: No Pertinent History Pyscho-Social History: No Pertinent History Reproductive Disorders: No Pertinent History Comment: central retinal vein occlusion (L EYE) , benign lump to thyroid. defibrilator - Female History Are you now?: No - Past Surgical History Past Surgical History: Yes Neuro Surgical History: No Pertinent History Cardiac History: Internal Defibrillator Respiratory Surgery: No Pertinent History GI Surgical History: No Pertinent History Genitourinary Surgical Hx: No Pertinent History Musculskeletal Surgical Hx: No Pertinent History Female Surgical History: Hysterectomy Other Surgical History: bladder tie up x3, partial thyroid removed. - Social History Smoking Status: Never smoker How long have you smoked: 2 YEARS Exposure to second hand smoke: No Alcohol: None Drug Use: none Significant Family History: no pertinent family hx - Physical Exam Vital Signs: Vital Signs - 24 hr Temp Pulse Resp BP BP Pulse Ox 03/10/23 20:29 58 L 16 97 03/10/23 20:10 97.1 F 57 L 16 172/84 97 03/10/23 19:00 56 L 11 L 145/91 94 L 03/10/23 18:45 66 18 98 03/10/23 18:31 98 03/10/23 17:32 142/70 03/10/23 17:00 59 L 16 151/76 98 03/10/23 16:00 60 15 141/71 98 03/10/23 14:23 57 L 14 116/63 96 03/10/23 14:14 56 L 23 98 03/10/23 13:57 108/58 03/10/23 13:20 57 L 15 121/58 98 03/10/23 13:15 61 24 121/58 97 Results - Labs Lab/Micro Results: Lab Results-Last 24 Hours 03/10/23 03/10/23 03/10/23 Range/Units 13:20 13:20 13:20 WBC 7.0 (4.0-10.5) x10^3/uL RBC 4.53 (4.1-5.4) x10^6/uL Hgb 13.9 (12.0-16.0) g/dL Hct 41.5 (35-47) % MCV 91.6 (78-100) fL MCH 30.7 (26-32) pg MCHC 33.5 (32-36) g/dL RDW 11.9 (11.5-14.0) % Plt Count 189 (150-450) x10^3/uL MPV 11.1 H (7.5-11.0) fL Gran % 48.5 (36.0-66.0) % Immature Gran % (Auto) 0.3 (0.00-0.4) % Nucleat RBC Rel Count 0.0 (0.00-0.1) % Eos # (Auto) 0.11 (0-0.5) x10^3/uL Immature Gran # (Auto) 0.02 (0.00-0.03) x10^3u/L Absolute Lymphs (auto) 2.87 (1.0-4.6) x10^3/uL Absolute Monos (auto) 0.55 (0.0-1.3) x10^3/uL Absolute Nucleated RBC 0.00 (0.00-0.01) x10^3u/L Lymphocytes % 41.1 (24.0-44.0) % Monocytes % 7.9 (0.0-12.0) % Eosinophils % 1.6 (0.00-5.0) % Basophils % 0.6 (0.0-0.4) % Absolute Granulocytes 3.39 (1.4-6.9) x10^3/uL Basophils # 0.04 (0-0.4) x10^3/uL D-Dimer (0.0-0.50) mg/L Sodium 140 (137-145) mmol/L Potassium 3.9 (3.5-5.1) mmol/L Chloride 106 (98-107) mmol/L Carbon Dioxide 25 (22-30) mmol/L Anion Gap 12.8 (5-15) MEQ/L BUN 28 H (7-17) mg/dL Creatinine 1.09 H (0.52-1.04) mg/dL Estimated GFR 50.8 ML/MIN Glucose 97 (74-106) mg/dL Calcium 9.4 (8.4-10.2) mg/dL Magnesium 2.2 (1.6-2.3) mg/dL Total Bilirubin 0.60 (0.2-1.3) mg/dL AST 29 (14-36) U/L ALT 20 (0-35) U/L Alkaline Phosphatase 86 (38-126) U/L Creatine Kinase 96 (30-135) U/L Troponin I < 0.012 (0.000-0.034) ng/mL Serum Total Protein 7.1 (6.3-8.2) g/dL Albumin 4.0 (3.5-5.0) g/dL Urine Color (Yellow) Urine Appearance (Clear) Urine pH (4.6-8.0) Ur Specific [place] (1.005-1.030) Urine Protein (Negative) Urine Glucose (UA) (Negative) mg/dL Urine Ketones (Negative) Urine Blood (Negative) Urine Nitrite (Negative) Urine Bilirubin (Negative) Urine Urobilinogen (0.2) mg/dL Ur Leukocyte Esterase (Negative) U Hyaline Cast (Auto) (0-2) /LPF Urine Microscopic RBC (0-5) /HPF Urine Microscopic WBC (0-5) /HPF Ur Epithelial Cells (None Seen) /HPF Urine Bacteria (None Seen) /HPF Urine Culture Reflexed (NO) 03/10/23 03/10/23 03/10/23 Range/Units 13:20 15:03 19:00 WBC (4.0-10.5) x10^3/uL RBC (4.1-5.4) x10^6/uL Hgb (12.0-16.0) g/dL Hct (35-47) % MCV (78-100) fL MCH (26-32) pg MCHC (32-36) g/dL RDW (11.5-14.0) % Plt Count (150-450) x10^3/uL MPV (7.5-11.0) fL Gran % (36.0-66.0) % Immature Gran % (Auto) (0.00-0.4) % Nucleat RBC Rel Count (0.00-0.1) % Eos # (Auto) (0-0.5) x10^3/uL Immature Gran # (Auto) (0.00-0.03) x10^3u/L Absolute Lymphs (auto) (1.0-4.6) x10^3/uL Absolute Monos (auto) (0.0-1.3) x10^3/uL Absolute Nucleated RBC (0.00-0.01) x10^3u/L Lymphocytes % (24.0-44.0) % Monocytes % (0.0-12.0) % Eosinophils % (0.00-5.0) % Basophils % (0.0-0.4) % Absolute Granulocytes (1.4-6.9) x10^3/uL Basophils # (0-0.4) x10^3/uL D-Dimer 0.64 H* (0.0-0.50) mg/L Sodium (137-145) mmol/L Potassium (3.5-5.1) mmol/L Chloride (98-107) mmol/L Carbon Dioxide (22-30) mmol/L Anion Gap (5-15) MEQ/L BUN (7-17) mg/dL Creatinine (0.52-1.04) mg/dL Estimated GFR ML/MIN Glucose (74-106) mg/dL Calcium (8.4-10.2) mg/dL Magnesium (1.6-2.3) mg/dL Total Bilirubin (0.2-1.3) mg/dL AST (14-36) U/L ALT (0-35) U/L Alkaline Phosphatase (38-126) U/L Creatine Kinase (30-135) U/L Troponin I < 0.012 (0.000-0.034) ng/mL Serum Total Protein (6.3-8.2) g/dL Albumin (3.5-5.0) g/dL Urine Color Yellow (Yellow) Urine Appearance Clear (Clear) Urine pH 7.5 (4.6-8.0) Ur Specific [place] 1.015 (1.005-1.030) Urine Protein Negative (Negative) Urine Glucose (UA) Negative (Negative) mg/dL Urine Ketones Negative (Negative) Urine Blood Negative (Negative) Urine Nitrite Negative (Negative) Urine Bilirubin Negative (Negative) Urine Urobilinogen 0.2 (0.2) mg/dL Ur Leukocyte Esterase Trace A (Negative) U Hyaline Cast (Auto) NONE SEEN (0-2) /LPF Urine Microscopic RBC 0-2 (0-5) /HPF Urine Microscopic WBC 0-2 (0-5) /HPF Ur Epithelial Cells None Seen (None Seen) /HPF Urine Bacteria None Seen (None Seen) /HPF Urine Culture Reflexed NO (NO) - Radiology Impressions Radiology Exams & Impressions: Radiology Procedures Category Date Time Status CHEST 1 VIEW (PORTABLE) Stat Exams 03/10/23 14:[address] ANGIOGRAPHY NECK [CT] Stat Exams 03/10/23 18:38 Completed CTA HEAD W AND/OR WO CONTRAST [CT] Stat Exams 03/10/23 18:16 Completed ECHO W/2D AND DOPPLER [US] Routine Exams 03/10/23 22:11 Ordered HEAD WITHOUT CONTRAST [CT] Stat Exams 03/10/23 14:08 Completed MRI BRAIN W/O CONTRAST [MRI] Routine Exams 03/10/23 22:10 Ordered Assessment/Plan (1) Hypertension Current Visit: Yes Status: Acute Code(s): I10 - ESSENTIAL (PRIMARY) HYPERTENSION (2) Bradycardia Current Visit: Yes Status: Acute Code(s): R00.1 - BRADYCARDIA, UNSPECIFIED (3) Dizziness Current Visit: Yes Status: Acute Code(s): R42 - DIZZINESS AND GIDDINESS (4) Transient ischemic attack (TIA) Current Visit: Yes Status: Acute Assessment & Plan: PHYSICAL EXAM Gen: Alert and oriented, NAD Eyes: PERRL, EOMI ENT: MMM CV: S1S2 Pulm: CTAB no w/c/r Abd: Soft/nt/nd Extrem: No c/c/e Skin: Dry and intact Neuro: No focal deficits ASSESSMENT #Possible TIA with presentation of dizziness, transient numbness of right arm #History of hypertension #History of sick sinus syndrome status post pacemaker PLAN -Follow neuro exam -Neurology consulted -Aspirin, Plavix -We will need MRI, echo with bubble study -Continue home antihypertensives -Monitor on telemetry Prophylaxis: Lovenox Entire encounter performed via telemedicine Code(s): G45.9 - TRANSIENT CEREBRAL ISCHEMIC ATTACK, UNSPECIFIED Telemedicine Encounter - Telemedicine Encounter Telemedicine Encounter: The entirety of this encounter was performed via Telemedicine"
[2023-03-10] MEDS: Toprol Xl 50 MG PO SCH (22:44)
[2023-03-10] MEDS: Pepcid 20 MG VIAL IV SCH (22:49)
[2023-03-11 04:32] LABS: Absolute Neutrophil Ct (ANC) 3.22 x10^3/uL (1.4-6.9); BASOPHIL % 0.7 % (0.0-0.4); Basophil (Absolute #) 0.04 x10^3/uL (0-0.4); Eosinophil % 1.6 % (0.00-5.0); Eosinophil (Absolute #) 0.09 x10^3/uL (0-0.5); Hematocrit 40.6 % (35-47); Hemoglobin 13.6 g/dL (12.0-16.0); IMMATURE GRAN # 0.01 x10^3u/L (0.00-0.03); IMMATURE GRAN % 0.2 % (0.00-0.4); Lymphocyte (Absolute #) 1.91 x10^3/uL (1.0-4.6); Lymphocytes % 33.3 % (24.0-44.0); Mean Cell Volume 91.9 fL (78-100); Mean Corpuscular Hemoglobin 30.8 pg (26-32); Mean Corpuscular Hgb Concent. 33.5 g/dL (32-36); Mean Platelet Volume 10.7 fL (7.5-11.0); Monocyte (Absolute #) 0.46 x10^3/uL (0.0-1.3); Neutrophil % 56.2 % (36.0-66.0); Platelet Count 153 x10^3/uL (150-450); Red Blood Count 4.42 x10^6/uL (4.1-5.4); White Blood Count 5.7 x10^3/uL (4.0-10.5)
[2023-03-11 04:54] LABS: ALBUMIN 3.5 g/dL (3.5-5.0); ALKALINE PHOSPHATASE 69 U/L (38-126); ANION GAP 11.6 MEQ/L (5-15); BLOOD UREA NITROGEN 19 mg/dL (7-17); CHLORIDE 108 mmol/L (98-107); Calcium 8.6 mg/dL (8.4-10.2); Carbon Dioxide 22 mmol/L (22-30); Creatinine 1 0.87 mg/dL (0.52-1.04); EST GLOMERULAR FILTRATION RATE > 60.0 ML/MIN; Glucose 88 mg/dL (74-106); Potassium 3.4 mmol/L (3.5-5.1); SGOT/AST 28 U/L (14-36); SGPT/ALT 19 U/L (0-35); SODIUM 138 mmol/L (137-145); Total Protein 6.5 g/dL (6.3-8.2)
[2023-03-11] MEDS ORDERED: Miralax Powder 17GM PACKET PO PRN (07:10)
[2023-03-11 07:34] VITALS: BP 147/74; PULSE 60; O2SAT 100
[2023-03-11] MEDS: Toprol Xl 50 MG PO SCH (09:43)
[2023-03-11] MEDS: Pepcid 20 MG VIAL IV SCH (09:43)
[2023-03-11] MEDS: Cozaar 50 MG PO SCH ×2 (09:57→10:04)
[2023-03-11] MEDS ORDERED: NON-FORMULARY ITEM (Losartan/Hydrochlorothiazide [Losartan-Hctz 100-25 Mg Tab] 1 EACH Tabl PO SCH (10:00)
[2023-03-11] MEDS ORDERED: Adalat CC 30 MG TABLET PO SCH (10:00)
[2023-03-11] MEDS ORDERED: ENOXAPARIN SODIUM SQ SCH (10:00)
[2023-03-11] MEDS ORDERED: hydroDIURIL 25 MG PO SCH (10:00)
--- NOTE | 2023-03-11 10:14 | PCM.DS ---
Discharge Summary Date of Admission: 03/10/23 19:38 Admitting Physician: STORM NUNN MD Consults: Consults on Case 03/10/23 16:15 Tele-Health Consult ROUTINE Primary Care Provider: ROBERT BILLINGS Allergies Allergies Sulfa (Sulfonamide Antibiotics) Adverse Reaction (Mild, Verified 01/23/21 04:06) Nausea nausea Hospital Summary - Hospital Course Hospital Course: Pt is an 82 yo female pt of Dr. Billings with PMHx HTN, afib (with defibrillator placed), hx diverticulitis, hx partial lobectomy thyroid, sick sinus syndrome, and palpitations who was admitted through ER wtih concern for TIA, bradycardia, and dizziness. She was having R arm numbness, dizzienss, and diaphoresis. Teleneurology consult was done and they recommended MRI or CTA head/neck (which was nonacute) and TTE (which is pending). They recommended with bubble study but that is not available here. She was started on plavix and ASA and is to con tinue this x 21d then plavix only. Lipitor 80mg pending cholesterol test (however she had lipid panel in December 2022 with total chol 196, triglycerides 187, HDL 52, LDL 94). A1c done and nl at 5.37. Her symptoms have resolved. She notes she was told to stay the night for observation and for evaluation in the morning by MD. She would like to go home; as her testing has been completed, she will be sent home on plavis and asa x 21 d then plavix. Home on statin at 80mg/d. Has f/u appt already scheduled with Dr. John in 2 d. F/u with PCP in 1 week. - Vitals & Intake/Output Vital Signs: Vital Signs Temperature 97.7 F 03/11/23 07:33 Pulse Rate 60 03/11/23 07:33 Respiratory Rate 16 03/11/23 07:33 Blood Pressure 147/74 03/11/23 07:33 O2 Sat by Pulse Oximetry 100 03/11/23 07:33 Intake & Output: Intake & Output 03/08/23 03/09/23 03/10/23 03/11/23 11:59 11:59 11:59 11:59 Intake Total 480 Balance 480 Weight 72.2 kg - Lab Result Diagrams: 03/11/23 04:06 03/11/23 04:06 Lab Results-Last 24 Hrs: Lab Results-Last 24 Hours 03/10/23 03/10/23 03/10/23 Range/Units 13:20 13:20 13:20 WBC 7.0 (4.0-10.5) x10^3/uL RBC 4.53 (4.1-5.4) x10^6/uL Hgb 13.9 (12.0-16.0) g/dL Hct 41.5 (35-47) % MCV 91.6 (78-100) fL MCH 30.7 (26-32) pg MCHC 33.5 (32-36) g/dL RDW 11.9 (11.5-14.0) % Plt Count 189 (150-450) x10^3/uL MPV 11.1 H (7.5-11.0) fL Gran % 48.5 (36.0-66.0) % Immature Gran % (Auto) 0.3 (0.00-0.4) % Nucleat RBC Rel Count 0.0 (0.00-0.1) % Eos # (Auto) 0.11 (0-0.5) x10^3/uL Immature Gran # (Auto) 0.02 (0.00-0.03) x10^3u/L Absolute Lymphs (auto) 2.87 (1.0-4.6) x10^3/uL Absolute Monos (auto) 0.55 (0.0-1.3) x10^3/uL Absolute Nucleated RBC 0.00 (0.00-0.01) x10^3u/L Lymphocytes % 41.1 (24.0-44.0) % Monocytes % 7.9 (0.0-12.0) % Eosinophils % 1.6 (0.00-5.0) % Basophils % 0.6 (0.0-0.4) % Absolute Granulocytes 3.39 (1.4-6.9) x10^3/uL Basophils # 0.04 (0-0.4) x10^3/uL D-Dimer (0.0-0.50) mg/L Sodium 140 (137-145) mmol/L Potassium 3.9 (3.5-5.1) mmol/L Chloride 106 (98-107) mmol/L Carbon Dioxide 25 (22-30) mmol/L Anion Gap 12.8 (5-15) MEQ/L BUN 28 H (7-17) mg/dL Creatinine 1.09 H (0.52-1.04) mg/dL Estimated GFR 50.8 ML/MIN Glucose 97 (74-106) mg/dL Hemoglobin A1c (4.5-6.0) % Calcium 9.4 (8.4-10.2) mg/dL Magnesium 2.2 (1.6-2.3) mg/dL Total Bilirubin 0.60 (0.2-1.3) mg/dL AST 29 (14-36) U/L ALT 20 (0-35) U/L Alkaline Phosphatase 86 (38-126) U/L Creatine Kinase 96 (30-135) U/L Troponin I < 0.012 (0.000-0.034) ng/mL Serum Total Protein 7.1 (6.3-8.2) g/dL Albumin 4.0 (3.5-5.0) g/dL Urine Color (Yellow) Urine Appearance (Clear) Urine pH (4.6-8.0) Ur Specific [place] (1.005-1.030) Urine Protein (Negative) Urine Glucose (UA) (Negative) mg/dL Urine Ketones (Negative) Urine Blood (Negative) Urine Nitrite (Negative) Urine Bilirubin (Negative) Urine Urobilinogen (0.2) mg/dL Ur Leukocyte Esterase (Negative) U Hyaline Cast (Auto) (0-2) /LPF Urine Microscopic RBC (0-5) /HPF Urine Microscopic WBC (0-5) /HPF Ur Epithelial Cells (None Seen) /HPF Urine Bacteria (None Seen) /HPF Urine Culture Reflexed (NO) 03/10/23 03/10/23 03/10/23 Range/Units 13:20 15:03 19:00 WBC (4.0-10.5) x10^3/uL RBC (4.1-5.4) x10^6/uL Hgb (12.0-16.0) g/dL Hct (35-47) % MCV (78-100) fL MCH (26-32) pg MCHC (32-36) g/dL RDW (11.5-14.0) % Plt Count (150-450) x10^3/uL MPV (7.5-11.0) fL Gran % (36.0-66.0) % Immature Gran % (Auto) (0.00-0.4) % Nucleat RBC Rel Count (0.00-0.1) % Eos # (Auto) (0-0.5) x10^3/uL Immature Gran # (Auto) (0.00-0.03) x10^3u/L Absolute Lymphs (auto) (1.0-4.6) x10^3/uL Absolute Monos (auto) (0.0-1.3) x10^3/uL Absolute Nucleated RBC (0.00-0.01) x10^3u/L Lymphocytes % (24.0-44.0) % Monocytes % (0.0-12.0) % Eosinophils % (0.00-5.0) % Basophils % (0.0-0.4) % Absolute Granulocytes (1.4-6.9) x10^3/uL Basophils # (0-0.4) x10^3/uL D-Dimer 0.64 H* (0.0-0.50) mg/L Sodium (137-145) mmol/L Potassium (3.5-5.1) mmol/L Chloride (98-107) mmol/L Carbon Dioxide (22-30) mmol/L Anion Gap (5-15) MEQ/L BUN (7-17) mg/dL Creatinine (0.52-1.04) mg/dL Estimated GFR ML/MIN Glucose (74-106) mg/dL Hemoglobin A1c (4.5-6.0) % Calcium (8.4-10.2) mg/dL Magnesium (1.6-2.3) mg/dL Total Bilirubin (0.2-1.3) mg/dL AST (14-36) U/L ALT (0-35) U/L Alkaline Phosphatase (38-126) U/L Creatine Kinase (30-135) U/L Troponin I < 0.012 (0.000-0.034) ng/mL Serum Total Protein (6.3-8.2) g/dL Albumin (3.5-5.0) g/dL Urine Color Yellow (Yellow) Urine Appearance Clear (Clear) Urine pH 7.5 (4.6-8.0) Ur Specific [place] 1.015 (1.005-1.030) Urine Protein Negative (Negative) Urine Glucose (UA) Negative (Negative) mg/dL Urine Ketones Negative (Negative) Urine Blood Negative (Negative) Urine Nitrite Negative (Negative) Urine Bilirubin Negative (Negative) Urine Urobilinogen 0.2 (0.2) mg/dL Ur Leukocyte Esterase Trace A (Negative) U Hyaline Cast (Auto) NONE SEEN (0-2) /LPF Urine Microscopic RBC 0-2 (0-5) /HPF Urine Microscopic WBC 0-2 (0-5) /HPF Ur Epithelial Cells None Seen (None Seen) /HPF Urine Bacteria None Seen (None Seen) /HPF Urine Culture Reflexed NO (NO) 03/10/23 03/11/23 03/11/23 Range/Units 21:51 04:06 04:06 WBC 5.7 (4.0-10.5) x10^3/uL RBC 4.42 (4.1-5.4) x10^6/uL Hgb 13.6 (12.0-16.0) g/dL Hct 40.6 (35-47) % MCV 91.9 (78-100) fL MCH 30.8 (26-32) pg MCHC 33.5 (32-36) g/dL RDW 12.0 (11.5-14.0) % Plt Count 153 (150-450) x10^3/uL MPV 10.7 (7.5-11.0) fL Gran % 56.2 (36.0-66.0) % Immature Gran % (Auto) 0.2 (0.00-0.4) % Nucleat RBC Rel Count 0.0 (0.00-0.1) % Eos # (Auto) 0.09 (0-0.5) x10^3/uL Immature Gran # (Auto) 0.01 (0.00-0.03) x10^3u/L Absolute Lymphs (auto) 1.91 (1.0-4.6) x10^3/uL Absolute Monos (auto) 0.46 (0.0-1.3) x10^3/uL Absolute Nucleated RBC 0.00 (0.00-0.01) x10^3u/L Lymphocytes % 33.3 (24.0-44.0) % Monocytes % 8.0 (0.0-12.0) % Eosinophils % 1.6 (0.00-5.0) % Basophils % 0.7 (0.0-0.4) % Absolute Granulocytes 3.22 (1.4-6.9) x10^3/uL Basophils # 0.04 (0-0.4) x10^3/uL D-Dimer (0.0-0.50) mg/L Sodium 138 (137-145) mmol/L Potassium 3.4 L (3.5-5.1) mmol/L Chloride 108 H (98-107) mmol/L Carbon Dioxide 22 (22-30) mmol/L Anion Gap 11.6 (5-15) MEQ/L BUN 19 H (7-17) mg/dL Creatinine 0.87 (0.52-1.04) mg/dL Estimated GFR > 60.0 ML/MIN Glucose 88 (74-106) mg/dL Hemoglobin A1c (4.5-6.0) % Calcium 8.6 (8.4-10.2) mg/dL Magnesium (1.6-2.3) mg/dL Total Bilirubin 0.60 (0.2-1.3) mg/dL AST 28 (14-36) U/L ALT 19 (0-35) U/L Alkaline Phosphatase 69 (38-126) U/L Creatine Kinase (30-135) U/L Troponin I < 0.012 (0.000-0.034) ng/mL Serum Total Protein 6.5 (6.3-8.2) g/dL Albumin 3.5 (3.5-5.0) g/dL Urine Color (Yellow) Urine Appearance (Clear) Urine pH (4.6-8.0) Ur Specific [place] (1.005-1.030) Urine Protein (Negative) Urine Glucose (UA) (Negative) mg/dL Urine Ketones (Negative) Urine Blood (Negative) Urine Nitrite (Negative) Urine Bilirubin (Negative) Urine Urobilinogen (0.2) mg/dL Ur Leukocyte Esterase (Negative) U Hyaline Cast (Auto) (0-2) /LPF Urine Microscopic RBC (0-5) /HPF Urine Microscopic WBC (0-5) /HPF Ur Epithelial Cells (None Seen) /HPF Urine Bacteria (None Seen) /HPF Urine Culture Reflexed (NO) 03/11/23 Range/Units 08:10 WBC (4.0-10.5) x10^3/uL RBC (4.1-5.4) x10^6/uL Hgb (12.0-16.0) g/dL Hct (35-47) % MCV (78-100) fL MCH (26-32) pg MCHC (32-36) g/dL RDW (11.5-14.0) % Plt Count (150-450) x10^3/uL MPV (7.5-11.0) fL Gran % (36.0-66.0) % Immature Gran % (Auto) (0.00-0.4) % Nucleat RBC Rel Count (0.00-0.1) % Eos # (Auto) (0-0.5) x10^3/uL Immature Gran # (Auto) (0.00-0.03) x10^3u/L Absolute Lymphs (auto) (1.0-4.6) x10^3/uL Absolute Monos (auto) (0.0-1.3) x10^3/uL Absolute Nucleated RBC (0.00-0.01) x10^3u/L Lymphocytes % (24.0-44.0) % Monocytes % (0.0-12.0) % Eosinophils % (0.00-5.0) % Basophils % (0.0-0.4) % Absolute Granulocytes (1.4-6.9) x10^3/uL Basophils # (0-0.4) x10^3/uL D-Dimer (0.0-0.50) mg/L Sodium (137-145) mmol/L Potassium (3.5-5.1) mmol/L Chloride (98-107) mmol/L Carbon Dioxide (22-30) mmol/L Anion Gap (5-15) MEQ/L BUN (7-17) mg/dL Creatinine (0.52-1.04) mg/dL Estimated GFR ML/MIN Glucose (74-106) mg/dL Hemoglobin A1c 5.37 (4.5-6.0) % Calcium (8.4-10.2) mg/dL Magnesium (1.6-2.3) mg/dL Total Bilirubin (0.2-1.3) mg/dL AST (14-36) U/L ALT (0-35) U/L Alkaline Phosphatase (38-126) U/L Creatine Kinase (30-135) U/L Troponin I (0.000-0.034) ng/mL Serum Total Protein (6.3-8.2) g/dL Albumin (3.5-5.0) g/dL Urine Color (Yellow) Urine Appearance (Clear) Urine pH (4.6-8.0) Ur Specific [place] (1.005-1.030) Urine Protein (Negative) Urine Glucose (UA) (Negative) mg/dL Urine Ketones (Negative) Urine Blood (Negative) Urine Nitrite (Negative) Urine Bilirubin (Negative) Urine Urobilinogen (0.2) mg/dL Ur Leukocyte Esterase (Negative) U Hyaline Cast (Auto) (0-2) /LPF Urine Microscopic RBC (0-5) /HPF Urine Microscopic WBC (0-5) /HPF Ur Epithelial Cells (None Seen) /HPF Urine Bacteria (None Seen) /HPF Urine Culture Reflexed (NO) - Radiology Exams Ordered Rad Exams-Entire Visit: Radiology Procedures Category Date Time Status CHEST 1 VIEW (PORTABLE) Stat Exams 03/10/23 14:[address] ANGIOGRAPHY NECK [CT] Stat Exams 03/10/23 18:38 Completed CTA HEAD W AND/OR WO CONTRAST [CT] Stat Exams 03/10/23 18:16 Completed ECHO W/2D AND DOPPLER [US] Routine Exams 03/11/23 08:00 Ordered HEAD WITHOUT CONTRAST [CT] Stat Exams 03/10/23 14:08 Completed - Procedures and Test Procedures and Tests throughout Hospitalization: Therapy Orders & Screens 03/10/23 21:28 Respiratory Therapy Assessment ONCE Comment: Diagnosis: near sycope/TIA 03/11/23 08:58 PT Eval & Treat ( Order) ONCE Reason for Eval:: ?TIA. Pt will d/c to home if doing well Diagnosis: near sycope/TIA ST Eval & Treat ( Order) .as ordered Comment: Physician Instructions: Reason For Exam: Evaluate: Yes Treat: Yes Reason for Eval: ?TIA Diagnosis: near sycope/TIA Discharge Exam General Appearance: no apparent distress, alert Neurologic Exam: oriented x 3, cooperative, licensing analyst II-XII nml as tested, normal mood/affect, nml cerebellar function, other (UE and LE proximally 5/5 strength), No motor deficits Eye Exam: eyes nml inspection Ears, Nose, Throat Exam: moist mucous membranes Neck Exam: normal inspection Respiratory Exam: normal breath sounds, lungs clear, No crackles/rales, No rhonchi, No wheezing Cardiovascular Exam: regular rate/rhythm, normal heart sounds, No murmur Gastrointestinal/Abdomen Exam: soft, normal bowel sounds, No tenderness, No distention, No mass, No guarding, No rebound Extremity Exam: normal inspection, No pedal edema, No swelling Skin Exam: normal color, warm, dry, No rash Final Diagnosis/Problem List - Final Discharge Diagnosis/Problem (1) Transient ischemic attack (TIA) Current Visit: Yes Status: Acute Assessment & Plan: Likely. Sx resolved. Home on plavix and asa x 21, then continue plavix only (since had the episode while on asa). Code(s): G45.9 - TRANSIENT CEREBRAL ISCHEMIC ATTACK, UNSPECIFIED (2) Bradycardia Current Visit: Yes Status: Chronic Assessment & Plan: has defibrillator. HR into the 50s overnight. Code(s): R00.1 - BRADYCARDIA, UNSPECIFIED (3) Dizziness Current Visit: Yes Status: Resolved Code(s): R42 - DIZZINESS AND GIDDINESS (4) Hypokalemia Current Visit: Yes Status: Acute Assessment & Plan: Add potassium and recheck in 2-3d. Code(s): E87.6 - HYPOKALEMIA (5) Hypertension Current Visit: Yes Status: Chronic Code(s): I10 - ESSENTIAL (PRIMARY) HYPERTENSION - Discharge Disposition: Home, Self-Care Condition: Good Prescriptions: New Atorvastatin Calcium [Lipitor] 80 mg PO QHS #30 tablet Clopidogrel Bisulfate [Plavix] 75 mg PO DAILY #30 tablet Potassium Chloride 10 meq PO DAILY #30 tablet Continue Aspirin 81 mg PO HS Metoprolol Succinate 50 mg [Toprol Xl 50 MG] 50 mg PO BID Losartan/Hydrochlorothiazide [Losartan-Hctz 100-25 mg Tab] 1 tab PO DAILY Polyethylene Glycol 3350 [Miralax] 17 gm PO DAILY PRN PRN PRN Reason: Constipation NIFEdipine [Nifedipine ER] 30 mg PO DAILY Follow up with: ROBERT BILLINGS [Primary Care Provider] -
[2023-03-11] MEDS ORDERED: PLAVIX Tablet PO SCH (10:19)
[2023-03-11] MEDS ORDERED: NON-FORMULARY ITEM (Aspirin [Aspirin] 81 MG Tablet) PO SCH (22:00)
[2023-03-11] MEDS ORDERED: ECOTRIN 81 MG PO SCH (22:00)
--- NOTE | 2023-03-12 12:59 | ECHO ---
Transthoracic echocardiographic examination and color Doppler was done on 03/11/2023. INDICATION: Transient ischemic attack. IMPRESSION: 1) NO REGIONAL WALL MOTION ABNORMALITY. ESTIMATED GLOBAL LEFT VENTRICULAR EJECTION FRACTION OF AROUND 60 TO 65%. 2) MODERATE AORTIC REGURGITATION. 3) MILD MITRAL REGURGITATION. 4) MILD TRICUSPID REGURGITATION RIGHT VENTRICULAR SYSTOLIC PRESSURE OF 40 MM OF MERCURY. 5) LEFT ATRIAL ENLARGEMENT. 6) LEFT VENTRICULAR HYPERTROPHY. 7) LEFT VENTRICLE DIASTOLIC DYSFUNCTION. The left ventricle is visualized and demonstrated adequate motion of all the segments. Estimated global left ventricular ejection fraction between 60 to 65%. There is mild left ventricular hypertrophy. The mitral valve is seen and this opens adequately. There is mild mitral regurgitation. Left atrium is mildly enlarged. Tissue Doppler study of the lateral mitral annulus is suggestive of left ventricle diastolic dysfunction. The aortic valve is trileaflet and opens adequately. There is moderate aortic regurgitation. The right side chambers are normal. There is mild tricuspid regurgitation. The right ventricular systolic pressure of 40 mm of Mercury.
== END 2023-03-11 11:26 | disposition home or self-care (01) ==
LOC: ED 13:20 → MED SURG 19:38
PROVIDERS: ADMIT Internal Medicine; ATTEND Family Medicine
DX: G45.9 Transient cerebral ischemic attack, unspecified (principal); R00.1 Bradycardia, unspecified; R42 Dizziness and giddiness; E87.6 Hypokalemia; I10 Essential (primary) hypertension; I48.91 Unspecified atrial fibrillation; Z79.899 Other long term (current) drug therapy; Z20.828 Contact with and (suspected) exposure to other viral communicable diseases
CPT/HCPCS: 36000; 36415; 70450; 70496; 70498; 71045; 80053; 81001; 82550; 83036; 83735; 84484; 85025; 85379; 93005; 93268; 93306; 94760; 96360; 99285; Q3014; A9270-GY; G0378